=== PATIENT | male | born 1960 | race Caucasian/White ===

== ENCOUNTER → 2017-02-03 | Outpatient (CLI) | payer OTHER ==
[2017-02-03 12:09] LABS: ABSOLUTE EOSINOPHILS # (AUTO) 0.1 10^3/uL (0.0-0.6); ABSOLUTE LYMPHOCYTES (AUTO) 1.2 10^3/uL (0.5-4.7); ABSOLUTE MONOCYTES (AUTO) 0.6 10^3/uL (0.1-1.4); ABSOLUTE NEUT (AUTO) 5.7 10^3/uL (1.7-8.2); BASOPHILS % (AUTO) 0.6 % (0-2); EOSINOPHILS % (AUTO) 1.5 % (0-6); HEMATOCRIT 43.4 % (37.9-51.0); HEMOGLOBIN 14.1 g/dL (13.5-17.0); HGB HCT DIFFERENCE -1.1; LYMPHOCYTES % (AUTO) 16.1 % (13-45); MEAN CORPUSCULAR HEMOGLOBIN 28.5 pg (27.0-33.4); MEAN CORPUSCULAR HGB CONC 32.5 g/dL (32.0-36.0); MEAN CORPUSCULAR VOLUME 88 fl (80-97); MONOCYTES % (AUTO) 7.5 % (3-13); RED BLOOD COUNT 4.96 10^6/uL (4.35-5.55); RED CELL DISTRIBUTION WIDTH 14.3 % (11.5-14.0); SEGMENTED NEUTROPHILS % (AUTO) 74.3 % (42-78); WHITE BLOOD COUNT 7.7 10^3/uL (4.0-10.5)
[2017-02-03 12:30] LABS: ANION GAP 9 (5-19); BLOOD UREA NITROGEN 31 mg/dL (7-20); CALCIUM 10.1 mg/dL (8.4-10.2); CARBON DIOXIDE 28 mmol/L (22-30); CHLORIDE 101 mmol/L (98-107); CREATININE RESULT 1.13 mg/dL (0.52-1.25); GLUCOSE 114 mg/dL (75-110); POTASSIUM 3.8 mmol/L (3.6-5.0); SODIUM 138.3 mmol/L (137-145)
[2017-02-03 12:51] LABS: ERYTHROCYTE SEDIMENTATION RATE 48 mm/hr (0-20)
== END ==
LOC: OD 10:21
DX: I10 Essential (primary) hypertension (principal); K57.92 Diverticulitis of intestine, part unspecified, without perforation or abscess without bleeding
CPT/HCPCS: 36415; 80048; 85025; 85652

== ENCOUNTER → 2017-02-12 | Outpatient (CLI) | payer OTHER | LOC: RAD 09:54 | DX: K57.92 Diverticulitis of intestine, part unspecified, without perforation or abscess without bleeding (principal) | CPT/HCPCS: 72040; 74177 ==

== ENCOUNTER → 2017-10-12 | Outpatient (CLI) | payer OTHER ==
[2017-10-12 12:30] LABS: Direct HDL 71 mg/dL (>40); TRIGLYCERIDES 91 mg/dL (<150)
[2017-10-12 12:43] LABS: DIRECT LDL 54 mg/dL (<100)
[2017-10-13 07:42] LABS: HEPATITIS C VIRUS AB <0.1 s/co ratio (0.0-0.9)
== END ==
LOC: CCC 10:37
DX: I27.0 Primary pulmonary hypertension (principal)
CPT/HCPCS: 36415; 80061; 83036; 84153; 84443; 86803; 86804

== ENCOUNTER → 2017-11-06 | Outpatient (CLI) | payer OTHER ==
[2017-11-08 08:38] LABS: THYROXINE (T4) 6.2 ug/dL (4.5-12.0)
== END ==
LOC: CCC 10:21
DX: R94.6 Abnormal results of thyroid function studies (principal)
CPT/HCPCS: 36415; 84436; 84443; 84479

== ENCOUNTER → 2018-04-12 | Outpatient (CLI) | payer OTHER ==
[2018-04-12 12:31] LABS: ABSOLUTE EOSINOPHILS # (AUTO) 0.1 10^3/uL (0.0-0.6); ABSOLUTE LYMPHOCYTES (AUTO) 1.3 10^3/uL (0.5-4.7); ABSOLUTE MONOCYTES (AUTO) 0.6 10^3/uL (0.1-1.4); ABSOLUTE NEUT (AUTO) 4.8 10^3/uL (1.7-8.2); BASOPHILS % (AUTO) 0.3 % (0-2); HEMATOCRIT 45.5 % (37.9-51.0); HEMOGLOBIN 15.5 g/dL (13.5-17.0); LYMPHOCYTES % (AUTO) 18.6 % (13-45); MEAN CORPUSCULAR HEMOGLOBIN 32.2 pg (27.0-33.4); MEAN CORPUSCULAR HGB CONC 34.1 g/dL (32.0-36.0); MEAN CORPUSCULAR VOLUME 94 fl (80-97); MONOCYTES % (AUTO) 9.5 % (3-13); PLATELET COUNT 353 10^3/uL (150-450); RED BLOOD COUNT 4.82 10^6/uL (4.35-5.55); RED CELL DISTRIBUTION WIDTH 13.2 % (11.5-14.0); SEGMENTED NEUTROPHILS % (AUTO) 70.6 % (42-78); TOTAL CELLS COUNTED % (AUTO) 100 %; WHITE BLOOD COUNT 6.8 10^3/uL (4.0-10.5)
[2018-04-12 13:03] LABS: ALANINE AMINOTRANSFERASE 53 U/L (21-72); ALBUMIN 4.3 g/dL (3.5-5.0); ALKALINE PHOSPHATASE 63 U/L (38-126); ANION GAP 10 (5-19); ASPARTATE AMINO TRANSFERASE 47 U/L (17-59); BILIRUBIN,DIRECT 0.2 mg/dL (0.0-0.4); BILIRUBIN,TOTAL 0.3 mg/dL (0.2-1.3); BLOOD UREA NITROGEN 15 mg/dL (7-20); CALCIUM 9.8 mg/dL (8.4-10.2); CARBON DIOXIDE 30 mmol/L (22-30); CHLORIDE 99 mmol/L (98-107); CHOLESTEROL 152.13 mg/dL (0-200); GLUCOSE 102 mg/dL (75-110); NEONATAL BILIRUBIN RESULT 0.1 mg/dL (0.1-1.1); POTASSIUM 4.5 mmol/L (3.6-5.0); SODIUM 138.7 mmol/L (137-145); TOTAL PROTEIN 6.9 g/dL (6.3-8.2); TRIGLYCERIDES 146 mg/dL (<150)
[2018-04-12 13:14] LABS: DIRECT LDL 59 mg/dL (<100)
[2018-04-13 06:39] LABS: HEPATITIS C VIRUS AB <0.1 s/co ratio (0.0-0.9)
== END ==
LOC: CCC 11:20
DX: Z00.00 Encounter for general adult medical examination without abnormal findings (principal); I10 Essential (primary) hypertension; E78.5 Hyperlipidemia, unspecified
CPT/HCPCS: 36415; 80053; 80061; 83036; 84153; 84443; 85025; 86803; 86804

== ENCOUNTER 2018-06-10 08:58 | Inpatient (IN) | payer MEDICARE, OTHER ==
[2018-06-10] MEDS ORDERED: METOCLOPRAMIDE HCL INJ/PF 10 MG/2 ML SDV IV ONE (09:13)
[2018-06-10] MEDS ORDERED: NORMAL SALINE 1000 ML 1,000 ML IV ONE ×2 (09:13→12:23)
[2018-06-10] MEDS ORDERED: HYDROMORPHONE HCL INJ/PF 2 MG/ML AMPULE IV ONE (09:13)
[2018-06-10 09:26] LABS: HEMATOCRIT 44.8 % (37.9-51.0); MEAN CORPUSCULAR HEMOGLOBIN 32.1 pg (27.0-33.4); MEAN CORPUSCULAR HGB CONC 33.5 g/dL (32.0-36.0); MEAN CORPUSCULAR VOLUME 96 fl (80-97); PLATELET COUNT 313 10^3/uL (150-450); RED BLOOD COUNT 4.68 10^6/uL (4.35-5.55); RED CELL DISTRIBUTION WIDTH 13.9 % (11.5-14.0); WHITE BLOOD COUNT 12.8 10^3/uL (4.0-10.5)
[2018-06-10 09:38] LABS: ALANINE AMINOTRANSFERASE 63 U/L (21-72); ALBUMIN 4.3 g/dL (3.5-5.0); ALKALINE PHOSPHATASE 67 U/L (38-126); ANION GAP 14 (5-19); ASPARTATE AMINO TRANSFERASE 81 U/L (17-59); BILIRUBIN,DIRECT 0.3 mg/dL (0.0-0.4); BILIRUBIN,TOTAL 0.4 mg/dL (0.2-1.3); BLOOD UREA NITROGEN 17 mg/dL (7-20); CALCIUM 9.3 mg/dL (8.4-10.2); CARBON DIOXIDE 28 mmol/L (22-30); CHLORIDE 98 mmol/L (98-107); GLUCOSE 142 mg/dL (75-110); POTASSIUM 4.4 mmol/L (3.6-5.0); SODIUM 139.6 mmol/L (137-145)
[2018-06-10 09:49] LABS: LIPASE 3188.4 U/L (23-300)
[2018-06-10 09:51] LABS: ABSOLUTE LYMPHOCYTES# (MANUAL) 0.5 10^3/uL (0.5-4.7); ABSOLUTE MONOCYTES # (MANUAL) 0.5 10^3/uL (0.1-1.4); ABSOLUTE NEUTROPHILS# (MANUAL) 11.8 10^3/uL (1.7-8.2); BASOPHILS % (MANUAL) 0 % (0-2); EOSINOPHILS % (MANUAL) 0 % (0-6); LYMPHOCYTES % (MANUAL) 4 % (13-45); MONOCYTES % (MANUAL) 4 % (3-13); PLATELET COMMENT ADEQUATE; RBC MORPHOLOGY COMMENT NORMO-CYTIC/CHROMIC; SEGMENTED NEUTROPHILS % (MAN) 92 % (42-78); TOTAL CELLS COUNTED 100; TOXIC GRANULATION SLIGHT
--- NOTE | 2018-06-10 09:53 | ER Document Report ---
ED General - General Chief Complaint: Abdominal Pain Stated Complaint: ABDOMINAL PAIN Time Seen by Provider: 06/10/18 09:06 Mode of Arrival: Medic Information source: Patient Notes: Pt is a 57 year old male with a history of diverticulitis who presents to the ER today for abdominal pain to his upper abdomen, right upper quadrant that woke him up from sleep at 1:30am. He admits to nausea and vomiting. He denies fever or chills, diarrhea. He doesn't have any gallbladder issues that he knows of, last bm was yesterday, he has never had any abd surgeries, has all his organs. He had steak last night for dinner. TRAVEL OUTSIDE OF THE [place] IN LAST 30 DAYS: No - Related Data Allergies/Adverse Reactions: No Known Allergies Allergy (Verified 10/21/16 14:16) Past Medical History - General Information source: Patient - Social History Smoking Status: Unknown if Ever Smoked Family History: Arthritis, Malignancy - Father with brain cancer., Other - Mother with vascular disease and arthritis. - Past Medical History Cardiac Medical History: Reports: Hx Hypercholesterolemia, Hx Hypertension Musculoskeletal Medical History: Reports Hx Arthritis Past Surgical History: Reports: Hx Orthopedic Surgery - neck - Immunizations Hx Diphtheria, Pertussis, Tetanus Vaccination: Yes Review of Systems - Review of Systems Constitutional: No symptoms reported EENT: No symptoms reported Cardiovascular: No symptoms reported Respiratory: No symptoms reported Gastrointestinal: See HPI Genitourinary: No symptoms reported Male Genitourinary: No symptoms reported Musculoskeletal: No symptoms reported Skin: No symptoms reported Hematologic/Lymphatic: No symptoms reported Neurological/Psychological: No symptoms reported Physical Exam - Vital signs Vitals: Temp Pulse Resp BP Pulse Ox 97.7 F 88 20 136/89 H 94 06/10/18 09:10 06/10/18 09:10 06/10/18 09:10 06/10/18 09:10 06/10/18 09:10 - Notes Notes: PHYSICAL EXAMINATION: GENERAL: ill appearing, writhing in pain, and in mild acute distress. HEAD: Atraumatic, normocephalic. EYES: Pupils equal round and reactive to light, extraocular movements intact, sclera anicteric, conjunctiva are normal. ENT: airway patent NECK: Normal range of motion, supple without lymphadenopathy LUNGS: CTAB and equal. No wheezes rales or rhonchi. HEART: Regular rate and rhythm without murmurs ABDOMEN: distended, ruq and epigastric tenderness. No guarding, no rebound BACK: no vertebral tenderness, normal ROM GI/: no CVA tenderness EXTREMITIES: Normal range of motion, no pitting edema. No cyanosis. NEUROLOGICAL: Cranial nerves grossly intact. Normal sensory/motor exams. PSYCH: Normal mood, normal affect. SKIN: Warm, Dry, normal turgor, no rashes or lesions noted Course - Re-evaluation Re-evalutation: 06/10/18 12:08 WBC 12, CT abd pelvis shows fat stranding around pancreas, early pancreatitis, lipase 3188, normal liver enzymes and bilirubin, but gallbladder enlarged on US and CT today, no wall thickening or stones, no biliary duct dilation. Dr. Short, surgeon diamond driller helper evaluated pt and accepts for possible gallstone pancreatitis with stone unseen on radiology today vs cholecystitis. pt really only has RUQ pain on exam but is distended. pt doing better with some dilaudid. - Vital Signs Vital signs: Temp Pulse Resp BP Pulse Ox 98.1 F 89 17 155/85 H 95 06/10/18 19:35 06/10/18 19:35 06/10/18 19:35 06/10/18 19:35 06/10/18 19:35 - Laboratory Result Diagrams: 06/10/18 08:40 06/10/18 08:40 Laboratory results interpreted by me: 06/10/18 06/10/18 08:40 08:40 WBC 12.8 H Seg Neuts % (Manual) 92 H Lymphocytes % (Manual) 4 L Abs Neuts (Manual) 11.8 H Glucose 142 H AST 81 H Lipase 3188.4 H Discharge - Discharge Clinical Impression: Gallstone pancreatitis Condition: Stable Disposition: ADMITTED INPATIENT Admitting Provider: Surgicalist Milo short Unit Admitted: Surgical Floor
--- NOTE | 2018-06-10 10:07 | RADIOLOGY REPORT (SQ) ---
EXAM DESCRIPTION: CT ABD/PELVIS WITH IV ONLY COMPLETED DATE/TIME: 06/10/2018 9:30 am REASON FOR STUDY: abd pain distention, woke him up from sleep, n/v COMPARISON: CT abdomen pelvis 07/15/2016, 10/11/2016, 10/15/2016, 10/04/2016, 02/12/2017 Abdominal ultrasound 06/29/2016 TECHNIQUE: CT scan of the abdomen and pelvis performed using helical scanning technique with dynamic intravenous contrast injection. No oral contrast. Images reviewed with lung, soft tissue, and bone windows. Reconstructed coronal and sagittal MPR images reviewed. Delayed images for evaluation of the urinary system also acquired. All images stored on PACS. All CT scanners at this facility use dose modulation, iterative reconstruction, and/or weight based d osing when appropriate to reduce radiation dose to as low as reasonably achievable (ALARA). [facility]: Dose Right [facility]: CareDose [facility]: Dose Right [facility]: Teradose 4D [facility]: Advanced Magnet Lab CONTRAST TYPE AND DOSE: contrast/concentration: Isovue 370.00 mg/ml; Total Contrast Delivered: 89.0 ml; Total Saline Delivered: 70.0 ml RENAL FUNCTION: Deferred by the emergency room physician RADIATION DOSE: CT Rad equipment meets quality standard of care and radiation dose reduction techniq ues were employed. CTDIvol: 10.0 - 14.4 mGy. DLP: 1327 mGy-cm.. LIMITATIONS: None. FINDINGS: LOWER CHEST: No significant findings. No nodules or infiltrates. LIVER: Normal size, diffuse low attenuation from fatty infiltration. No masses. No biliary ductal d ilatation SPLEEN: Normal size. No focal lesions. PANCREAS: Minimal inflammatory stranding in the peripancreatic fat along the pancreatic head, worriso me for early pancreatitis. Remainder the pancreas is otherwise unremarkable. No pancreatic ductal d ilatation GALLBLADDER: Distended, without radiopaque stones or pericholecystic fluid. ADRENAL GLANDS: No significant masses or asymmetry. RIGHT KIDNEY AND URETER: No solid masses. No significant calcifications. No hydronephrosis or hyd roureter. LEFT KIDNEY AND URETER: No solid masses. No significant calcifications. No hydronephrosis or hydr oureter. AORTA AND VESSELS: No aneurysm. No dissection. Renal arteries, SMA, celiac without stenosis. RETROPERITONEUM: No retroperitoneal adenopathy, hemorrhage or masses. BOWEL AND PERITONEAL CAVITY: Large amount of stool throughout the colon. No CT evidence of bowel obs truction. No free intraperitoneal air or fluid. Colonic diverticuli without CT signs of acute diver ticulitis. APPENDIX: Not identified PELVIS: No mass. No free fluid. Normal bladder. ABDOMINAL WALL: No masses. No hernias. BONES: No significant or acute findings. OTHER: No other significant finding. IMPRESSION: Fatty liver Minimal retroperitoneal inflammation around the pancreatic head, worrisome for pancreatitis TECHNICAL DOCUMENTATION: JOB ID: [id number] Quality ID # [id number]: Final reports with documentation of one or more dose reduction techniques (e.g., Au tomated exposure control, adjustment of the mA and/or kV according to patient size, use of iterative reconstruction technique) 2010 [employer]- All Rights Reserved Reading location - IP/workstation name: [email or web address]
--- NOTE | 2018-06-10 11:27 | RADIOLOGY REPORT (SQ) ---
EXAM DESCRIPTION: U/S ABDOMEN LIMITED W/O DOP COMPLETED DATE/TIME: 06/10/2018 11:10 am REASON FOR STUDY: lipase 3,000, enlarged gallbladder on CT COMPARISON: CT abdomen and pelvis 06/10/2018. Abdominal ultrasound 06/29/2016. TECHNIQUE: Grayscale images acquired of the abdomen and recorded on PACS. Additional selected color Doppler and spectral images recorded. LIMITATIONS: Overlying bowel gas. FINDINGS: PANCREAS: The pancreas is obscured by overlying bowel gas. LIVER: Measures 16.6 cm. There is coarsened echotexture suggestive of fatty infiltration. LIVER VASCULATURE: Normal directional flow of the main portal vein. GALLBLADDER: The gallbladder is distended measuring 10.5 x 4.6 x 4.2 cm. No stones. Normal wall thic kness. No pericholecystic fluid. ULTRASOUND-DETECTED KELLEY'S SIGN: Positive. INTRAHEPATIC DUCTS AND COMMON DUCT: CBD and intrahepatic ducts normal caliber. INFERIOR VENA CAVA: Patent. AORTA: No aneurysm at the visualized segments. RIGHT KIDNEY: Measures 13.1 cm. Normal echogenicity. No hydronephrosis. No calcifications. PERITONEAL AND RIGHT PLEURAL SPACE: No ascites or effusions. IMPRESSION: 1. Distended gallbladder with no cholelithiasis or gallbladder wall thickening. Tender ness over the gallbladder during ultrasound scanning. If there is clinical concern for acalculous ch olecystitis, hepatobiliary scan can be obtained for further evaluation. 2. Fatty infiltration of the liver. 3. Obscured pancreas. TECHNICAL DOCUMENTATION: JOB ID: [id number] [place]-64 2010 [employer]- All Rights Reserved Reading location - IP/workstation name: [email or web address]
[2018-06-10] MEDS ORDERED: HYDROMORPHONE HCL INJ/PF 2 MG/ML AMPULE IV PRN ×2 (12:22→13:13)
[2018-06-10] MEDS: NORMAL SALINE 1000 ML 1,000 ML IV PRN ×2 (13:30→22:32)
[2018-06-10 16:15] LABS: APPEARANCE,URINE CLEAR; BILIRUBIN,URINE NEGATIVE (NEGATIVE); COLOR,URINE YELLOW; GLUCOSE, URINE NEGATIVE (NEGATIVE); KETONES,URINE 20 mg/dL (NEGATIVE); LEUKOCYTE ESTERASE,URINE NEGATIVE (NEGATIVE); NITRITE,URINE NEGATIVE (NEGATIVE); PROTEIN,URINE NEGATIVE (NEGATIVE); URINE SPECIFIC GRAVITY 1.032; UROBILINOGEN,URINE NEGATIVE mg/dL (<2.0)
[2018-06-10] MEDS: MORPHINE SULFATE 10 MG/ML INJ IV PRN ×2 (16:51→21:28)
[2018-06-10] MEDS: ERTAPENEM SODIUM 1 GM in NORMAL SALINE 50 ML IV SCH (17:17)
[2018-06-10] MEDS: ONDANSETRON 4 MG TAB.RAPDIS PO PRN ×2 (18:09→23:52)
[2018-06-10] MEDS ORDERED: LISINOPRIL 10 MG TABLET PO ONE (20:45)
[2018-06-10] MEDS ORDERED: HYDROCHLOROTHIAZIDE 12.5 MG TABLET PO ONE (21:00)
[2018-06-10] MEDS: NICOTINE 21 MG/24 HR PATCH.TD24 TD SCH (21:28)
[2018-06-10] MEDS: KETOROLAC TROMETHAMINE INJ/PF 30 MG/1 ML SDV IV PRN (23:51)
[2018-06-11] MEDS ORDERED: LABETALOL HCL INJ 20 MG/4 ML DISP.SYRIN IV PRN ×2 (00:01→00:30)
--- NOTE | 2018-06-11 00:26 | PDOC CONSULTATION ---
Consultation Consult Date: 06/10/18 Attending physician:: JUNIOR SHORT Consult reason:: Elevated blood pressure History of Present Illness Admission Date/PCP: 09/09/2018 23:15 Patient complains of: Abdominal pain History of Present Illness: RAUL CLAIRE is a 57 year old male with history of multiple medical problems that will be mentioned below presented with acute onset of upper abdominal pain , mainly in the right upper quadrant with associated nausea and vomiting. Denies any fever or chills. She has been having constipation since yesterday. He was admitted for acute pancreatitis and is suspected to be gallstone pancreatitis. He is expected to have cholecystectomy no dysuria, oliguria, hematuria or flank pain. He has been noticed to have elevated blood pressure this evening. He denies any headache or dizziness or blurred vision. No paresthesias or focal muscle weakness. No chest pain or dyspnea or palpitations. I was consulted for medical evaluation and management of his hypertension. Past Medical History Cardiac Medical History: Reports: Hyperlipidema, Hypertension GI History Note: Gallstone pancreatitis Musculoskeltal Medical History: Reports: Arthritis Psychiatric Medical History: Reports: Depression Past Surgical History Past Surgical History: Reports: Orthopedic Surgery - neck Social History Smoking Status: Current Every Day Smoker Cigarettes Packs Per Day: 1 Number of Years Smokin Last Time Smoked: 06/10/18 0700 Frequency of Alcohol Use: Occasional Hx Recreational Drug Use: No Drugs: None Hx Prescription Drug Abuse: No - Advance Directive Resuscitation Status: Full Code Family History Family History: Arthritis, Hypertension, Malignancy - Father with brain cancer. , Other - Mother with vascular disease and arthritis. Parental Family History Reviewed: Yes Children Family History Reviewed: Yes Sibling(s) Family History Reviewed.: Yes Medication/Allergy Home Medications: Atorvastatin Calcium [Lipitor 40 mg Tablet] 40 mg PO QHS 06/10/18 Celecoxib [Celebrex 200 mg Capsule] 200 mg PO DAILY 06/10/18 Duloxetine HCl [Cymbalta] 60 mg PO DAILY 06/10/18 Lisinopril/Hydrochlorothiazide [Lisinopril-Hctz 10-12.5 mg Tab] 1 each PO QPM Lisinopril/Hydrochlorothiazide [Lisinopril-Hctz 10-12.5 mg Tab] 2 each PO QAM Metaxalone [Skelaxin 800 mg Tablet] 800 mg PO TID 06/10/18 Tramadol HCl [Ultram 50 mg Tablet] 50 mg PO QIDP PRN 06/10/18 Zinc [Zinc Chelated] 50 mg PO DAILY 06/10/18 Allergies/Adverse Reactions: No Known Allergies Allergy (Verified 10/21/16 14:16) Review of Systems Review of Systems: As per history of present illness. All pertinent systems were reviewed above. Constitutional, HEENT, cardiovascular, respiratory, GI, , musculoskeletal, neuro, psychiatric, endocrine, integumentary and hematologic systems were reviewed and are otherwise negative/unremarkable except for positive findings mentioned above in the HPI. Physical Exam Vital Signs: Temp Pulse Resp BP Pulse Ox 98.1 F 89 17 155/85 H 95 06/10/18 19:35 06/10/18 19:35 06/10/18 19:35 06/10/18 19:35 06/10/18 19:35 Intake & Output 06/09/18 06/10/18 06/11/18 06:59 06:59 06:59 Weight 82.4 kg Exam: Generally: Very pleasant middle-aged male in mild distress from abdominal pain Vital signs-as listed Head - atraumatic, normocephalic. Pupils - equal, round and reactive to light and accommodation. Extraocular movements are intact. No scleral icterus. Oropharynx - moist mucous membranes and tongue. No pharyngeal erythema or exudate. Neck - supple. No JVD. Carotid pulses 2+ bilaterally. No carotid bruits. No palpable thyromegaly or lymphadenopathy. Cardiovascular - regular rate and rhythm. Normal S1 and S2. No murmurs, gallops or rubs. Lungs - clear to auscultation bilaterally. Abdomen - soft and diffusely tender mainly in the right upper quadrant, epigastric area as well as the left upper quadrant. Positive bowel sounds. No palpable organomegaly or masses. Extremities - no pitting edema, clubbing or cyanosis. Neuro - grossly non-focal. Skin - no rashes. and rectal exam - deferred. Results Laboratory Results: 06/10/18 15:45 Urine Color YELLOW Urine Appearance CLEAR Urine pH 5.0 Ur Specific Green 1.032 Urine Protein NEGATIVE Urine Glucose (UA) NEGATIVE Urine Ketones 20 H Urine Blood NEGATIVE Urine Nitrite NEGATIVE Ur Leukocyte Esterase NEGATIVE Urine WBC (Auto) 0 Urine RBC (Auto) 1 Impressions: Abdomen/Pelvis CT 06/10/18 09:14 IMPRESSION: Fatty liver Minimal retroperitoneal inflammation around the pancreatic head, worrisome for pancreatitis Abdomen Ultrasound 06/10/18 09:52 IMPRESSION: 1. Distended gallbladder with no cholelithiasis or gallbladder wall thickening. Tenderness over the gallbladder during ultrasound scanning. If there is clinical concern for acalculous cholecystitis, hepatobiliary scan can be obtained for further evaluation. 2. Fatty infiltration of the liver. 3. Obscured pancreas. Assessment & Plan - Diagnosis (1) Gallstone pancreatitis Is this a current diagnosis for this admission?: Yes Plan: The patient will have serial lipase levels. Pain management will be provided. Is being kept n.p.o. Is being prepared for cholecystectomy. He has no history of CVA, CHF, coronary artery disease, diabetes on insulin renal failure. He is considered at average risk for his age for perioperative cardiovascular events. The revised cardiac risk index. He has no current pulmonary issues. (2) Hypertension Qualifiers: Hypertension type: essential hypertension Qualified Code(s): I10 - Essential (primary) hypertension Is this a current diagnosis for this admission?: Yes Plan: The patient can be continued on his p.o. lisinopril HCT and we will add as needed IV labetalol for optimal BP control. His elevated blood pressures partly related to his pain. He was ordered IV Toradol in addition to IV morphine on a as needed basis for pain (3) Tobacco abuse Is this a current diagnosis for this admission?: Yes Plan: I counseled the patient for smoking cessation and the patient will receive further counseling here. (4) Dyslipidemia Is this a current diagnosis for this admission?: Yes Plan: We will hold statin therapy given elevated AST (5) DVT prophylaxis Is this a current diagnosis for this admission?: Yes Plan: This is deferred to Dr. Short. - Plan Summary Plan Summary: The plan of care was discussed in details with the patient. I answered all questions. The patient agreed to proceed with the above-mentioned plan. The patient is presumably full code. This note was created by [employer] software and may contain typo errors that may have not been proofread. Thank you Dr. Short for allowing me to participate in the care of this very pleasant gentleman. We will follow the patient along with you.
[2018-06-11] MEDS: MORPHINE SULFATE 10 MG/ML INJ IV PRN ×2 (01:30→11:38)
[2018-06-11] MEDS: KETOROLAC TROMETHAMINE INJ/PF 30 MG/1 ML SDV IV PRN (05:40)
[2018-06-11 06:59] LABS: ABSOLUTE LYMPHOCYTES (AUTO) 0.7 10^3/uL (0.5-4.7); ABSOLUTE MONOCYTES (AUTO) 0.8 10^3/uL (0.1-1.4); ABSOLUTE NEUT (AUTO) 7.8 10^3/uL (1.7-8.2); BASOPHILS % (AUTO) 0.2 % (0-2); EOSINOPHILS % (AUTO) 0.3 % (0-6); HEMOGLOBIN 13.3 g/dL (13.5-17.0); LYMPHOCYTES % (AUTO) 7.5 % (13-45); MEAN CORPUSCULAR HEMOGLOBIN 32.4 pg (27.0-33.4); MEAN CORPUSCULAR VOLUME 95 fl (80-97); MONOCYTES % (AUTO) 8.9 % (3-13); PLATELET COUNT 231 10^3/uL (150-450); RED BLOOD COUNT 4.09 10^6/uL (4.35-5.55); RED CELL DISTRIBUTION WIDTH 13.9 % (11.5-14.0); SEGMENTED NEUTROPHILS % (AUTO) 83.1 % (42-78); TOTAL CELLS COUNTED % (AUTO) 100 %; WHITE BLOOD COUNT 9.4 10^3/uL (4.0-10.5)
[2018-06-11 07:18] LABS: ALANINE AMINOTRANSFERASE 45 U/L (21-72); ALBUMIN 3.3 g/dL (3.5-5.0); ALKALINE PHOSPHATASE 44 U/L (38-126); ANION GAP 10 (5-19); ASPARTATE AMINO TRANSFERASE 41 U/L (17-59); BILIRUBIN,DIRECT 0.3 mg/dL (0.0-0.4); BILIRUBIN,TOTAL 0.5 mg/dL (0.2-1.3); BLOOD UREA NITROGEN 14 mg/dL (7-20); CALCIUM 8.4 mg/dL (8.4-10.2); CARBON DIOXIDE 27 mmol/L (22-30); CHLORIDE 102 mmol/L (98-107); GLUCOSE 94 mg/dL (75-110); LIPASE 878.1 U/L (23-300); POTASSIUM 3.8 mmol/L (3.6-5.0); SODIUM 138.7 mmol/L (137-145); TOTAL PROTEIN 5.7 g/dL (6.3-8.2)
[2018-06-11] MEDS ORDERED: FENTANYL CITRATE INJ/PF 100 MCG/2 ML AMPUL ONE ×3 (07:51→10:16)
[2018-06-11] MEDS ORDERED: MIDAZOLAM 2 MG/2 ML INJ ONE (07:52)
[2018-06-11] MEDS ORDERED: PROPOFOL INJ 200 MG/20 ML VIAL IV ONE (07:52)
[2018-06-11] MEDS ORDERED: HYDROMORPHONE HCL INJ/PF 2 MG/ML AMPULE ONE (07:53)
[2018-06-11] MEDS ORDERED: ACETAMINOPHEN 1,000 MG/100 ML RTUPB IV ONE (07:53)
[2018-06-11] MEDS: BUPIVACAINE HCL 0.25 % INJ/PF (2.5 MG/1 ML) 30 ML VIAL ONE ×2 (08:39→09:30)
[2018-06-11] MEDS ORDERED: FENTANYL CITRATE INJ/PF 100 MCG/2 ML AMPUL IV PRN ×3 (09:06)
[2018-06-11] MEDS ORDERED: DIPHENHYDRAMINE HCL 50 MG/ML VIAL IV PRN (09:06)
[2018-06-11] MEDS ORDERED: PROMETHAZINE HCL INJ 25 MG/1 ML VIAL IV PRN (09:06)
--- NOTE | 2018-06-11 09:45 | EKG REPORT ---
SEVERITY:- BORDERLINE ECG - SINUS TACHYCARDIA PROBABLE LEFT ATRIAL ABNORMALITY : Confirmed by: Efren Beltrán 11-Jun-2018 09:44:30
[2018-06-11] MEDS ORDERED: PROMETHAZINE HCL INJ 25 MG/1 ML VIAL ONE (10:16)
--- NOTE | 2018-06-11 10:25 | OPERATIVE REPORT E ---
Operative Report NAME: RAUL CLAIRE : 1960 AGE: 57Y DATE OF SURGERY: 06/11/2018 ROOM: 527 PREOPERATIVE DIAGNOSIS: Gallstone pancreatitis. POSTOPERATIVE DIAGNOSIS: Gallstone pancreatitis with chronic cholecystitis. OPERATION: Laparoscopic cholecystectomy. SURGEON: JUNIOR DUFFY M.D. ANESTHESIA: General. INDICATIONS: This is a 57-year-old male complaining of pains in the right upper quadrant all of the sudden 2 nights ago. He came to the Emergency Room yesterday where an ultrasound, however, showed no gallstones. However, he was tender in the right upper quadrant and his lipase elevated to over 2000. He was admitted and placed on IV antibiotics, and this morning his lipase is less than 1000 and all his liver functions were normal with a white count also coming down to normal. He is still quite tender in the right upper quadrant. DESCRIPTION OF PROCEDURE: After adequate general anesthesia, the abdomen was then prepped and draped in the usual sterile fashion. Appropriate time out was then called. Next, an infraumbilical incision was made and a Simona trocar inserted through the fascia into the abdominal cavity, and CO2 insufflated to a pressure of 15 mmHg. Three other trocars were placed under direct vision, a 12 mm in the subxiphoid and two 5 mm in the right upper quadrant. The gallbladder was then identified and there were a lot of adhesions around it. The gallbladder also was quite tense and unable to grasp with a grasper. Because of this the gallbladder was then emptied using a long needle and aspirated at least 60 mL of bile. Next the tip of the gallbladder was subsequently grasped and pulled over the liver, and the adhesions around the gallbladder were bluntly lysed and also together with the Harmonic wli. The wall was somewhat thickened. The infundibulum was then lifted up and the cystic duct dissected. The cystic artery was also identified. After visualization of the critical angle the cystic duct was then clipped proximally x2 and another clip towards the gallbladder. The cystic duct was then divided between the distal clips. The cystic artery was then clipped and divided with the use of Harmonic wil. The gallbladder was then taken off the liver bed with use of the Harmonic wil. There was some oozing around the liver bed prior to removal of the gallbladder. This was then controlled with the use of spatula cautery. The gallbladder was then removed from the liver bed completely and placed in an Endobag and pulled out through the umbilical port. Trocars were put back in the umbilicus and the liver bed inspected and irrigated. There was still a couple areas of oozing which were again further controlled with use of spatula cautery. Adequate hemostasis was noted. There was no stone palpated in the gallbladder through the bag. All the trocars were then removed and CO2 allowed to come out the trocar sites. A kemptf-qy-pabuk suture using 0 Vicryl was then placed at the umbilicus, a [id number] suture on the posterior fascia, and another one on the anterior fascia. All the skin incisions were then closed with running subcuticular closure using 4-0 Vicryl. Sterile Dermabond glue was used as a dressing. The patient tolerated the procedure well. The needle, instrument, and sponge counts were all correct. Estimated blood loss was about 10 mL. The patient tolerated the procedure and was brought to the recovery room in satisfactory condition. DICTATING PHYSICIAN: JUNIOR DUFFY M.D. [id number] PHY#: [id number] ID: [id number] JOB#: [id number] ACCT: [id number] cc:JUNIOR DUFFY M.D. >
[2018-06-11] MEDS ORDERED: GLYCOPYRROLATE 1 MG/5 ML SYRINGE ONE (14:31)
[2018-06-11] MEDS ORDERED: ROCURONIUM BROMIDE INJ 50 MG/5 ML VIAL IV ONE (14:31)
[2018-06-11] MEDS ORDERED: NEOSTIGMINE METHYLSULFATE 10 MG/10 ML VIAL ONE (14:31)
[2018-06-11] MEDS ORDERED: SUCCINYLCHOLINE CHLORIDE INJ 200 MG/10 ML VIAL ONE (14:31)
[2018-06-11] MEDS ORDERED: PHENYLEPHRINE HCL INJ/PF 10 MG/1 ML SDV ONE (14:31)
[2018-06-11] MEDS: ERTAPENEM SODIUM 1 GM in NORMAL SALINE 50 ML IV SCH (15:08)
[2018-06-11] MEDS: OXYCODONE-ACETAMINOPHEN 5-325 MG TABLET PO PRN ×2 (15:10→20:07)
--- NOTE | 2018-06-11 17:28 | PDOC PROGRESS REPORT ---
Subjective Progress Note for:: 06/11/18 Subjective:: The patient is a 57-year-old male with past medical history significant for hypertension, hyperlipidemia, and tobacco abuse with continuous use who was admitted 06/10/18 by the surgical team for acute cholecystitis. The patient is seen on afternoon rounds after returning to his room status post cholecystectomy by Dr. Short. He is found sitting upright in bed, comfortably , on room air. He reports that he is feeling much better and was able to tolerate a clear liquid diet at lunch. He denies headaches, dizziness, blurred vision, chest pain, palpitations, dyspnea, orthopnea, nausea and vomiting. He does endorse mild right upper quadrant abdominal pain, although states that this is much improved. He has no questions or concerns at this time. Reason For Visit: GALLSTONE PANCREATITIS Physical Exam Vital Signs: Temp Pulse Resp BP Pulse Ox 97.9 F 97 16 125/87 H 98 06/11/18 14:50 06/11/18 14:50 06/11/18 14:50 06/11/18 14:50 06/11/18 14:50 Intake & Output 06/10/18 06/11/18 06/12/18 06:59 06:59 06:59 Intake Total 1300 1325 Output Total 500 240 Balance 800 1085 Weight 82.4 kg General appearance: PRESENT: no acute distress, cooperative - Very pleasant, well-developed, well-nourished, other - Overweight Head exam: PRESENT: atraumatic, normocephalic Eye exam: PRESENT: conjunctiva pink, EOMI, PERRLA. ABSENT: scleral icterus Ear exam: PRESENT: normal external ear exam Mouth exam: PRESENT: moist, tongue midline Neck exam: ABSENT: carotid bruit, JVD, lymphadenopathy, thyromegaly Respiratory exam: PRESENT: clear to auscultation janel, symmetrical, unlabored. ABSENT: rales, rhonchi, wheezes Cardiovascular exam: PRESENT: RRR, +S1, +S2. ABSENT: diastolic murmur, rubs, systolic murmur Pulses: PRESENT: normal dorsalis pedis pul Vascular exam: PRESENT: normal capillary refill GI/Abdominal exam: PRESENT: normal bowel sounds, soft, tenderness. ABSENT: distended, guarding, mass, organolmegaly, rebound Rectal exam: PRESENT: deferred Extremities exam: PRESENT: full ROM. ABSENT: calf tenderness, clubbing, pedal edema Neurological exam: PRESENT: alert, awake, oriented to person, oriented to place , oriented to time, oriented to situation, CN II-XII grossly intact. ABSENT: motor sensory deficit Psychiatric exam: PRESENT: appropriate affect, normal mood. ABSENT: homicidal ideation, suicidal ideation Skin exam: PRESENT: dry, warm. ABSENT: cyanosis, rash Results Laboratory Results: 06/11/18 06:27 06/11/18 06:27 06/11/18 06/11/18 06:27 06:27 WBC 9.4 RBC 4.09 L Hgb 13.3 L Hct 39.0 MCV 95 MCH 32.4 MCHC 34.0 RDW 13.9 Plt Count 231 Seg Neutrophils % 83.1 H Lymphocytes % 7.5 L Monocytes % 8.9 Eosinophils % 0.3 Basophils % 0.2 Absolute Neutrophils 7.8 Absolute Lymphocytes 0.7 Absolute Monocytes 0.8 Absolute Eosinophils 0.0 Absolute Basophils 0.0 Sodium 138.7 Potassium 3.8 Chloride 102 Carbon Dioxide 27 Anion Gap 10 BUN 14 Creatinine 0.72 Est GFR ( Amer) > 60 Est GFR (Non-Af Amer) > 60 Glucose 94 Calcium 8.4 Total Bilirubin 0.5 AST 41 ALT 45 Alkaline Phosphatase 44 Total Protein 5.7 L Albumin 3.3 L Lipase 878.1 H Impressions: Abdomen/Pelvis CT 06/10/18 09:14 IMPRESSION: Fatty liver Minimal retroperitoneal inflammation around the pancreatic head, worrisome for pancreatitis Abdomen Ultrasound 06/10/18 09:52 IMPRESSION: 1. Distended gallbladder with no cholelithiasis or gallbladder wall thickening. Tenderness over the gallbladder during ultrasound scanning. If there is clinical concern for acalculous cholecystitis, hepatobiliary scan can be obtained for further evaluation. 2. Fatty infiltration of the liver. 3. Obscured pancreas. Assessment & Plan - Diagnosis (1) Gallstone pancreatitis Is this a current diagnosis for this admission?: Yes Plan: Lipase is trended down following cholecystectomy; 3188 --> 878. The patient is now tolerating a clear liquid diet. He continues to receive maintenance IV fluids. He is provided antiemetics and analgesics as needed. Antibiotics per surgical team. Primary plan per surgery. (2) Hypertension Qualifiers: Hypertension type: essential hypertension Qualified Code(s): I10 - Essential (primary) hypertension Is this a current diagnosis for this admission?: Yes Plan: Normotensive at present. Continue his home maintenance medications; lisinopril/HCTZ. Optimize pain management. IV labetalol as needed for blood pressure control. (3) Tobacco abuse Is this a current diagnosis for this admission?: Yes Plan: Smoking cessation is encouraged; nicotine with placement therapies are provided. (4) Dyslipidemia Is this a current diagnosis for this admission?: Yes Plan: We will continue to hold statin related to recently elevated LFTs. Patient may resume following discharge. - Time Time Spent with patient: 15-24 minutes Medications reviewed and adjusted accordingly: Yes Anticipated discharge: Home Within: Other - Per surgical team.
[2018-06-11] MEDS: NICOTINE 21 MG/24 HR PATCH.TD24 TD SCH (20:35)
[2018-06-11] MEDS: CALCIUM CARBONATE 500 MG TAB.CHEW PO PRN (23:32)
[2018-06-12] MEDS: OXYCODONE-ACETAMINOPHEN 5-325 MG TABLET PO PRN ×3 (01:03→11:18)
[2018-06-12] MEDS: CALCIUM CARBONATE 500 MG TAB.CHEW PO PRN ×3 (04:35→23:20)
[2018-06-12] MEDS ORDERED: DOCUSATE SODIUM 100 MG CAPSULE PO PRN (13:35)
[2018-06-12] MEDS: NORMAL SALINE 1000 ML 1,000 ML IV PRN (14:29)
[2018-06-12] MEDS: KETOROLAC TROMETHAMINE INJ/PF 30 MG/1 ML SDV IV PRN ×2 (14:30→22:30)
[2018-06-12] MEDS: ERTAPENEM SODIUM 1 GM in NORMAL SALINE 50 ML IV SCH (14:33)
[2018-06-12] MEDS ORDERED: HYDROCHLOROTHIAZIDE 12.5 MG TABLET PO ONE (15:30)
[2018-06-12] MEDS ORDERED: LISINOPRIL 10 MG TABLET PO ONE (15:30)
--- NOTE | 2018-06-12 16:39 | PDOC PROGRESS REPORT ---
Subjective Progress Note for:: 06/12/18 Subjective:: mild RUQ pains Reason For Visit: GALLSTONE PANCREATITIS Physical Exam Vital Signs: Temp Pulse Resp BP Pulse Ox 97.8 F 90 16 151/93 H 96 06/12/18 12:00 06/12/18 12:00 06/12/18 12:00 06/12/18 12:00 06/12/18 12:00 Intake & Output 06/11/18 06/12/18 06/13/18 06:59 06:59 06:59 Intake Total 1300 5275 Output Total 500 690 Balance 800 4585 Weight 82.4 kg 86.2 kg Exam: abd is soft with mild distention Results Laboratory Results: 06/11/18 06:27 06/11/18 06:27 Impressions: Abdomen/Pelvis CT 06/10/18 09:14 IMPRESSION: Fatty liver Minimal retroperitoneal inflammation around the pancreatic head, worrisome for pancreatitis Abdomen Ultrasound 06/10/18 09:52 IMPRESSION: 1. Distended gallbladder with no cholelithiasis or gallbladder wall thickening. Tenderness over the gallbladder during ultrasound scanning. If there is clinical concern for acalculous cholecystitis, hepatobiliary scan can be obtained for further evaluation. 2. Fatty infiltration of the liver. 3. Obscured pancreas. Assessment & Plan - Time Time Spent with patient: 15-24 minutes - Plan Summary Plan Summary: POD 1 post lap tresa for gallstone pancreatitis Repeat labs in am Increase po diet and activity Possible discharge tomorrow
--- NOTE | 2018-06-12 17:12 | PDOC PROGRESS REPORT ---
Subjective Progress Note for:: 06/12/18 Subjective:: The patient is a 57-year-old male with past medical history significant for hypertension, hyperlipidemia, and tobacco abuse with continuous use who was admitted 06/10/18 by the surgical team for acute cholecystitis. The patient is seen on rounds POD#[address] Short. He is found sitting up to the edge of the bed, comfortably, on room air. He reports that he is feeling well today and is hopeful for d/c to home tomorrow. He denies headaches, dizziness, blurred vision, chest pain, palpitations, dyspnea, orthopnea, nausea and vomiting. He does endorse continued mild right upper quadrant abdominal pain. He has no questions or concerns at this time. Reason For Visit: GALLSTONE PANCREATITIS Physical Exam Vital Signs: Temp Pulse Resp BP Pulse Ox 98.0 F 84 16 142/90 H 97 06/12/18 16:00 06/12/18 16:00 06/12/18 16:00 06/12/18 16:00 06/12/18 16:00 Intake & Output 06/11/18 06/12/18 06/13/18 06:59 06:59 06:59 Intake Total 1300 5275 Output Total 500 690 Balance 800 4585 Weight 82.4 kg 86.2 kg General appearance: PRESENT: no acute distress, cooperative, well-developed, well-nourished Head exam: PRESENT: atraumatic, normocephalic Eye exam: PRESENT: conjunctiva pink, EOMI, PERRLA. ABSENT: scleral icterus Mouth exam: PRESENT: moist, tongue midline Neck exam: ABSENT: carotid bruit, JVD, lymphadenopathy, thyromegaly Respiratory exam: PRESENT: clear to auscultation janel, symmetrical, unlabored. ABSENT: rales, rhonchi, wheezes Cardiovascular exam: PRESENT: RRR. ABSENT: diastolic murmur, rubs, systolic murmur Vascular exam: PRESENT: normal capillary refill GI/Abdominal exam: PRESENT: normal bowel sounds, soft, tenderness. ABSENT: distended, guarding, mass, organolmegaly, rebound Rectal exam: PRESENT: deferred Extremities exam: PRESENT: full ROM. ABSENT: calf tenderness, clubbing, pedal edema Neurological exam: PRESENT: alert, awake, oriented to person, oriented to place , oriented to time, oriented to situation, CN II-XII grossly intact. ABSENT: motor sensory deficit Psychiatric exam: PRESENT: appropriate affect, normal mood. ABSENT: homicidal ideation, suicidal ideation Skin exam: PRESENT: dry, warm. ABSENT: cyanosis, rash Results Laboratory Results: 06/11/18 06:27 06/11/18 06:27 Impressions: Abdomen/Pelvis CT 06/10/18 09:14 IMPRESSION: Fatty liver Minimal retroperitoneal inflammation around the pancreatic head, worrisome for pancreatitis Abdomen Ultrasound 06/10/18 09:52 IMPRESSION: 1. Distended gallbladder with no cholelithiasis or gallbladder wall thickening. Tenderness over the gallbladder during ultrasound scanning. If there is clinical concern for acalculous cholecystitis, hepatobiliary scan can be obtained for further evaluation. 2. Fatty infiltration of the liver. 3. Obscured pancreas. Assessment & Plan - Diagnosis (1) Gallstone pancreatitis Is this a current diagnosis for this admission?: Yes Plan: Lipase is trended down following cholecystectomy; 3188 --> 878. The patient is now tolerating a regular diet. He continues to receive maintenance IV fluids. He is provided antiemetics and analgesics as needed. Antibiotics per surgical team. Primary plan per surgery. (2) Hypertension Qualifiers: Hypertension type: essential hypertension Qualified Code(s): I10 - Essential (primary) hypertension Is this a current diagnosis for this admission?: Yes Plan: Mildly elevated today at present; will continue to monitor. May need to consider increasing lisinopril dose. Continue his home maintenance medications; lisinopril/HCTZ. Optimize pain management. IV labetalol as needed for blood pressure control. (3) Tobacco abuse Is this a current diagnosis for this admission?: Yes Plan: Smoking cessation is encouraged; nicotine with placement therapies are provided. (4) Dyslipidemia Is this a current diagnosis for this admission?: Yes Plan: We will continue to hold statin related to recently elevated LFTs. Patient may resume following discharge. - Time Time Spent with patient: Less than 15 minutes Medications reviewed and adjusted accordingly: Yes Anticipated discharge: Home
[2018-06-12] MEDS: MORPHINE SULFATE 10 MG/ML INJ IV PRN (18:56)
[2018-06-12] MEDS: NICOTINE 21 MG/24 HR PATCH.TD24 TD SCH (22:24)
[2018-06-13] MEDS: MORPHINE SULFATE 10 MG/ML INJ IV PRN ×2 (03:47→17:26)
[2018-06-13] MEDS: CALCIUM CARBONATE 500 MG TAB.CHEW PO PRN ×2 (03:47→19:50)
[2018-06-13] MEDS: NORMAL SALINE 1000 ML 1,000 ML IV PRN ×2 (03:51→21:22)
[2018-06-13] MEDS: KETOROLAC TROMETHAMINE INJ/PF 30 MG/1 ML SDV IV PRN (06:45)
[2018-06-13 06:58] LABS: ABSOLUTE EOSINOPHILS # (AUTO) 0.1 10^3/uL (0.0-0.6); ABSOLUTE LYMPHOCYTES (AUTO) 0.9 10^3/uL (0.5-4.7); ABSOLUTE MONOCYTES (AUTO) 0.7 10^3/uL (0.1-1.4); ABSOLUTE NEUT (AUTO) 6.4 10^3/uL (1.7-8.2); BASOPHILS % (AUTO) 0.2 % (0-2); EOSINOPHILS % (AUTO) 1.4 % (0-6); HEMATOCRIT 34.4 % (37.9-51.0); HEMOGLOBIN 11.7 g/dL (13.5-17.0); LYMPHOCYTES % (AUTO) 10.8 % (13-45); MEAN CORPUSCULAR HEMOGLOBIN 32.6 pg (27.0-33.4); MEAN CORPUSCULAR HGB CONC 34.2 g/dL (32.0-36.0); MEAN CORPUSCULAR VOLUME 96 fl (80-97); MONOCYTES % (AUTO) 8.9 % (3-13); PLATELET COUNT 208 10^3/uL (150-450); RED CELL DISTRIBUTION WIDTH 13.6 % (11.5-14.0); SEGMENTED NEUTROPHILS % (AUTO) 78.7 % (42-78); TOTAL CELLS COUNTED % (AUTO) 100 %; WHITE BLOOD COUNT 8.2 10^3/uL (4.0-10.5)
[2018-06-13 07:14] LABS: ALANINE AMINOTRANSFERASE 166 U/L (21-72); ALBUMIN 2.7 g/dL (3.5-5.0); ALKALINE PHOSPHATASE 178 U/L (38-126); ANION GAP 10 (5-19); ASPARTATE AMINO TRANSFERASE 240 U/L (17-59); BILIRUBIN,DIRECT 0.4 mg/dL (0.0-0.4); BILIRUBIN,TOTAL 0.6 mg/dL (0.2-1.3); BLOOD UREA NITROGEN 10 mg/dL (7-20); CALCIUM 9.1 mg/dL (8.4-10.2); CARBON DIOXIDE 25 mmol/L (22-30); CHLORIDE 103 mmol/L (98-107); GLUCOSE 80 mg/dL (75-110); LIPASE 478.9 U/L (23-300); POTASSIUM 3.7 mmol/L (3.6-5.0); SODIUM 138.3 mmol/L (137-145); TOTAL PROTEIN 5.1 g/dL (6.3-8.2)
--- NOTE | 2018-06-13 09:58 | PDOC PROGRESS REPORT ---
Subjective Progress Note for:: 06/13/18 Subjective:: Feels well. Tolerating a diet but still having some degree of right upper quadrant abdominal pain. Reason For Visit: GALLSTONE PANCREATITIS Physical Exam Vital Signs: Temp Pulse Resp BP Pulse Ox 98.4 F 95 18 151/92 H 96 06/13/18 08:23 06/13/18 08:23 06/13/18 08:23 06/13/18 08:23 06/13/18 08:23 Intake & Output 06/12/18 06/13/18 06/14/18 06:59 06:59 06:59 Intake Total 5275 440 Output Total 690 Balance 4585 440 Weight 86.2 kg 85.7 kg General appearance: PRESENT: no acute distress, cooperative Respiratory exam: PRESENT: clear to auscultation janel Cardiovascular exam: PRESENT: RRR GI/Abdominal exam: PRESENT: other - Soft, mild tenderness to palpation at the epigastric and the right upper quadrant without peritoneal signs. Results Laboratory Results: 06/13/18 06:38 06/13/18 06:38 06/13/18 06/13/18 06:38 06:38 WBC 8.2 RBC 3.60 L Hgb 11.7 L Hct 34.4 L MCV 96 MCH 32.6 MCHC 34.2 RDW 13.6 Plt Count 208 Seg Neutrophils % 78.7 H Lymphocytes % 10.8 L Monocytes % 8.9 Eosinophils % 1.4 Basophils % 0.2 Absolute Neutrophils 6.4 Absolute Lymphocytes 0.9 Absolute Monocytes 0.7 Absolute Eosinophils 0.1 Absolute Basophils 0.0 Sodium 138.3 Potassium 3.7 Chloride 103 Carbon Dioxide 25 Anion Gap 10 BUN 10 Creatinine 0.70 Est GFR ( Amer) > 60 Est GFR (Non-Af Amer) > 60 Glucose 80 Calcium 9.1 Total Bilirubin 0.6 AST 240 H ALT 166 H Alkaline Phosphatase 178 H Total Protein 5.1 L Albumin 2.7 L Lipase 478.9 H Impressions: Abdomen/Pelvis CT 06/10/18 09:14 IMPRESSION: Fatty liver Minimal retroperitoneal inflammation around the pancreatic head, worrisome for pancreatitis Abdomen Ultrasound 06/10/18 09:52 IMPRESSION: 1. Distended gallbladder with no cholelithiasis or gallbladder wall thickening. Tenderness over the gallbladder during ultrasound scanning. If there is clinical concern for acalculous cholecystitis, hepatobiliary scan can be obtained for further evaluation. 2. Fatty infiltration of the liver. 3. Obscured pancreas. Assessment & Plan - Diagnosis (1) Gallstone pancreatitis Is this a current diagnosis for this admission?: Yes Plan: Patient still with evidence of gallstone pancreatitis by laboratory evaluation. Will back off the diet to clear liquids for right now. If he has any worsening will put him on bowel rest. We will keep him in the hospital and repeat his laboratory work tomorrow. If his LFTs are persistently elevated in the next several days he may benefit from an ERCP.
[2018-06-13] MEDS ORDERED: CELECOXIB 200 MG CAPSULE PO SCH (10:00)
[2018-06-13] MEDS: LISINOPRIL 10 MG TABLET PO SCH (10:42)
[2018-06-13] MEDS: DULOXETINE HCL 30 MG CAPSULE.DR PO SCH (10:43)
[2018-06-13] MEDS: HYDROCHLOROTHIAZIDE 12.5 MG TABLET PO SCH (10:58)
[2018-06-13] MEDS ORDERED: AMLODIPINE BESYLATE 5 MG TABLET PO ONE ×2 (13:30→22:00)
--- NOTE | 2018-06-13 16:51 | PDOC PROGRESS REPORT ---
Subjective Progress Note for:: 06/13/18 Subjective:: The patient is a 57-year-old male with past medical history significant for hypertension, hyperlipidemia, and tobacco abuse with continuous use who was admitted 06/10/18 by the surgical team for acute cholecystitis. The patient is seen on rounds POD#[address] Short. He is found sitting up to the edge of the bed, comfortably, on room air. He reports that he is feeling well today; he does continue a slight right upper quadrant and epigastric pain. He notes that he has a large area of bruising in the surgical site. He reports that he is disappointed to learn that he needs to stay in the hospital for observation due to elevated LFTs. Otherwise, he has no new questions or concerns. He denies headaches, dizziness, blurred vision, chest pain, palpitations, dyspnea, orthopnea, nausea and vomiting. Reason For Visit: GALLSTONE PANCREATITIS Physical Exam Vital Signs: Temp Pulse Resp BP Pulse Ox 98.3 F 85 16 160/102 H 98 06/13/18 16:00 06/13/18 16:00 06/13/18 16:00 06/13/18 16:00 06/13/18 11:17 Intake & Output 06/12/18 06/13/18 06/14/18 06:59 06:59 06:59 Intake Total 5275 440 450 Output Total 690 Balance 4585 440 450 Weight 86.2 kg 85.7 kg General appearance: PRESENT: no acute distress, cooperative, well-developed, well-nourished Head exam: PRESENT: atraumatic, normocephalic Eye exam: PRESENT: conjunctiva pink, EOMI, PERRLA. ABSENT: scleral icterus Mouth exam: PRESENT: moist Neck exam: ABSENT: carotid bruit, JVD, lymphadenopathy, thyromegaly Respiratory exam: PRESENT: clear to auscultation janel, symmetrical, unlabored. ABSENT: rales, rhonchi, wheezes Cardiovascular exam: PRESENT: RRR. ABSENT: diastolic murmur, rubs, systolic murmur Pulses: PRESENT: normal dorsalis pedis pul Vascular exam: PRESENT: normal capillary refill GI/Abdominal exam: PRESENT: normal bowel sounds, soft, tenderness. ABSENT: distended, guarding, mass, organolmegaly, rebound Rectal exam: PRESENT: deferred Extremities exam: PRESENT: full ROM. ABSENT: calf tenderness, clubbing, pedal edema Neurological exam: PRESENT: alert, awake, oriented to person, oriented to place , oriented to time, oriented to situation, CN II-XII grossly intact. ABSENT: motor sensory deficit Psychiatric exam: PRESENT: appropriate affect, normal mood. ABSENT: homicidal ideation, suicidal ideation Skin exam: PRESENT: dry, intact, warm. ABSENT: cyanosis, rash Results Laboratory Results: 06/13/18 06:38 06/13/18 06:38 06/13/18 06/13/18 06:38 06:38 WBC 8.2 RBC 3.60 L Hgb 11.7 L Hct 34.4 L MCV 96 MCH 32.6 MCHC 34.2 RDW 13.6 Plt Count 208 Seg Neutrophils % 78.7 H Lymphocytes % 10.8 L Monocytes % 8.9 Eosinophils % 1.4 Basophils % 0.2 Absolute Neutrophils 6.4 Absolute Lymphocytes 0.9 Absolute Monocytes 0.7 Absolute Eosinophils 0.1 Absolute Basophils 0.0 Sodium 138.3 Potassium 3.7 Chloride 103 Carbon Dioxide 25 Anion Gap 10 BUN 10 Creatinine 0.70 Est GFR ( Amer) > 60 Est GFR (Non-Af Amer) > 60 Glucose 80 Calcium 9.1 Total Bilirubin 0.6 AST 240 H ALT 166 H Alkaline Phosphatase 178 H Total Protein 5.1 L Albumin 2.7 L Lipase 478.9 H Impressions: Abdomen/Pelvis CT 06/10/18 09:14 IMPRESSION: Fatty liver Minimal retroperitoneal inflammation around the pancreatic head, worrisome for pancreatitis Abdomen Ultrasound 06/10/18 09:52 IMPRESSION: 1. Distended gallbladder with no cholelithiasis or gallbladder wall thickening. Tenderness over the gallbladder during ultrasound scanning. If there is clinical concern for acalculous cholecystitis, hepatobiliary scan can be obtained for further evaluation. 2. Fatty infiltration of the liver. 3. Obscured pancreas. Assessment & Plan - Diagnosis (1) Gallstone pancreatitis Is this a current diagnosis for this admission?: Yes Plan: Lipase is trended down following cholecystectomy; 3188 --> 878. The patient is now tolerating a regular diet. He continues to receive maintenance IV fluids. He is provided antiemetics and analgesics as needed. Antibiotics per surgical team. Primary plan per surgery. (2) Hypertension Qualifiers: Hypertension type: essential hypertension Qualified Code(s): I10 - Essential (primary) hypertension Is this a current diagnosis for this admission?: Yes Plan: Remains elevated despite resuming his home regiment and obtaining adequate pain control. Continue his home maintenance medications; lisinopril/HCTZ. Have added amlodipine 5 mg once daily. Optimize pain management. IV labetalol as needed for blood pressure control. (3) Tobacco abuse Is this a current diagnosis for this admission?: Yes Plan: Smoking cessation is encouraged; nicotine with placement therapies are provided. (4) Dyslipidemia Is this a current diagnosis for this admission?: Yes Plan: We will continue to hold statin related to elevated LFTs. - Time Time Spent with patient: Less than 15 minutes Medications reviewed and adjusted accordingly: Yes Anticipated discharge: Home Within: Other - Medically clear for discharge; at surgeries discretion.
--- NOTE | 2018-06-13 20:06 | PDOC PROGRESS REPORT ---
Subjective Progress Note for:: 06/13/18 Subjective:: Patient notes worsened abdominal pain with a burning type of sensation. Abdominal distention. No nausea or vomiting however. No shortness of breath. Reason For Visit: GALLSTONE PANCREATITIS Physical Exam Vital Signs: Temp Pulse Resp BP Pulse Ox 98.1 F 87 20 164/97 H 96 06/13/18 17:59 06/13/18 17:59 06/13/18 17:59 06/13/18 17:59 06/13/18 17:59 Intake & Output 06/12/18 06/13/18 06/14/18 06:59 06:59 06:59 Intake Total 5275 440 870 Output Total 690 Balance 4585 440 870 Weight 86.2 kg 85.7 kg General appearance: PRESENT: no acute distress, cooperative Respiratory exam: PRESENT: clear to auscultation janel Cardiovascular exam: PRESENT: RRR GI/Abdominal exam: PRESENT: other - Distended, soft, bruising along the right lateral abdomen. Mild diffuse abdominal tenderness. Results Laboratory Results: 06/13/18 06:38 06/13/18 06:38 06/13/18 06/13/18 06:38 06:38 WBC 8.2 RBC 3.60 L Hgb 11.7 L Hct 34.4 L MCV 96 MCH 32.6 MCHC 34.2 RDW 13.6 Plt Count 208 Seg Neutrophils % 78.7 H Lymphocytes % 10.8 L Monocytes % 8.9 Eosinophils % 1.4 Basophils % 0.2 Absolute Neutrophils 6.4 Absolute Lymphocytes 0.9 Absolute Monocytes 0.7 Absolute Eosinophils 0.1 Absolute Basophils 0.0 Sodium 138.3 Potassium 3.7 Chloride 103 Carbon Dioxide 25 Anion Gap 10 BUN 10 Creatinine 0.70 Est GFR ( Amer) > 60 Est GFR (Non-Af Amer) > 60 Glucose 80 Calcium 9.1 Total Bilirubin 0.6 AST 240 H ALT 166 H Alkaline Phosphatase 178 H Total Protein 5.1 L Albumin 2.7 L Lipase 478.9 H Impressions: Abdomen/Pelvis CT 06/10/18 09:14 IMPRESSION: Fatty liver Minimal retroperitoneal inflammation around the pancreatic head, worrisome for pancreatitis Abdomen Ultrasound 06/10/18 09:52 IMPRESSION: 1. Distended gallbladder with no cholelithiasis or gallbladder wall thickening. Tenderness over the gallbladder during ultrasound scanning. If there is clinical concern for acalculous cholecystitis, hepatobiliary scan can be obtained for further evaluation. 2. Fatty infiltration of the liver. 3. Obscured pancreas. Assessment & Plan - Diagnosis (1) Gallstone pancreatitis Is this a current diagnosis for this admission?: Yes Plan: Patient with evidence of continue pancreatitis. Will place him on bowel rest. IV fluids. We will change his IV morphine to Dilaudid. Will recheck labs in the morning. If his LFTs continues to be markedly elevated will obtain GI consult for possible ERCP.
[2018-06-13] MEDS ORDERED: DEXTROSE 40% GEL 15 GM TUBE PO PRN ×2 (20:07)
[2018-06-13] MEDS ORDERED: DEXTROSE 50%-WATER 25 GM/50 ML DISP.SYRIN IV PRN ×2 (20:07)
[2018-06-13] MEDS ORDERED: GLUCAGON,HUMAN RECOMB 1 MG INJ SUBCUT PRN (20:07)
[2018-06-13] MEDS: FAMOTIDINE INJ/PF 20 MG/2 ML SDV IV SCH (21:21)
[2018-06-13] MEDS: NICOTINE 21 MG/24 HR PATCH.TD24 TD SCH (21:21)
[2018-06-13] MEDS: HYDROMORPHONE HCL INJ/PF 2 MG/ML AMPULE IV PRN (22:30)
[2018-06-14] MEDS: HYDROMORPHONE HCL INJ/PF 2 MG/ML AMPULE IV PRN ×5 (02:24→21:37)
[2018-06-14] MEDS: NORMAL SALINE 1000 ML 1,000 ML IV PRN ×3 (05:28→21:38)
[2018-06-14 06:46] LABS: HEMATOCRIT 32.6 % (37.9-51.0); HEMOGLOBIN 11.3 g/dL (13.5-17.0); MEAN CORPUSCULAR HEMOGLOBIN 32.3 pg (27.0-33.4); MEAN CORPUSCULAR HGB CONC 34.6 g/dL (32.0-36.0); MEAN CORPUSCULAR VOLUME 93 fl (80-97); PLATELET COUNT 241 10^3/uL (150-450); RED BLOOD COUNT 3.49 10^6/uL (4.35-5.55); RED CELL DISTRIBUTION WIDTH 13.5 % (11.5-14.0); WHITE BLOOD COUNT 7.1 10^3/uL (4.0-10.5)
[2018-06-14 07:10] LABS: ALANINE AMINOTRANSFERASE 109 U/L (21-72); ALBUMIN 2.7 g/dL (3.5-5.0); ALKALINE PHOSPHATASE 118 U/L (38-126); ANION GAP 10 (5-19); ASPARTATE AMINO TRANSFERASE 75 U/L (17-59); BILIRUBIN,DIRECT 0.3 mg/dL (0.0-0.4); BILIRUBIN,TOTAL 0.6 mg/dL (0.2-1.3); BLOOD UREA NITROGEN 9 mg/dL (7-20); CARBON DIOXIDE 25 mmol/L (22-30); CHLORIDE 101 mmol/L (98-107); GLUCOSE 74 mg/dL (75-110); LIPASE 33.2 U/L (23-300); POTASSIUM 3.5 mmol/L (3.6-5.0); SODIUM 136.1 mmol/L (137-145); TOTAL PROTEIN 4.7 g/dL (6.3-8.2)
[2018-06-14] MEDS: HYDROCHLOROTHIAZIDE 12.5 MG TABLET PO SCH (07:45)
--- NOTE | 2018-06-14 09:52 | PDOC PROGRESS REPORT ---
Subjective Progress Note for:: 06/14/18 Subjective:: Still having some abdominal pain but has improved since yesterday. No emesis. Passing a little bit of gas. Still feels bloated. Reason For Visit: GALLSTONE PANCREATITIS Physical Exam Vital Signs: Temp Pulse Resp BP Pulse Ox 98.6 F 94 16 149/98 H 93 06/14/18 07:53 06/14/18 07:53 06/14/18 07:53 06/14/18 07:53 06/14/18 07:53 Intake & Output 06/13/18 06/14/18 06/15/18 06:59 06:59 06:59 Intake Total 440 1842 Output Total 1245 Balance 440 597 Weight 85.7 kg General appearance: PRESENT: no acute distress, cooperative Respiratory exam: PRESENT: clear to auscultation janel Cardiovascular exam: PRESENT: RRR GI/Abdominal exam: PRESENT: soft - Moderately distended. Mild right-sided abdominal tenderness without peritoneal signs. Improved from yesterday. The bruising has not spread in the patient's right lateral abdomen. The periumbilical region appears better. Extremities exam: PRESENT: other - No swelling and no tenderness Results Laboratory Results: 06/14/18 06:15 06/14/18 06:15 06/14/18 06/14/18 06:15 06:15 WBC 7.1 RBC 3.49 L Hgb 11.3 L Hct 32.6 L MCV 93 MCH 32.3 MCHC 34.6 RDW 13.5 Plt Count 241 Sodium 136.1 L Potassium 3.5 L Chloride 101 Carbon Dioxide 25 Anion Gap 10 BUN 9 Creatinine 0.60 Est GFR ( Amer) > 60 Est GFR (Non-Af Amer) > 60 Glucose 74 L Calcium 8.0 L Total Bilirubin 0.6 AST 75 H ALT 109 H Alkaline Phosphatase 118 Total Protein 4.7 L Albumin 2.7 L Lipase 33.2 Impressions: Abdomen/Pelvis CT 06/10/18 09:14 IMPRESSION: Fatty liver Minimal retroperitoneal inflammation around the pancreatic head, worrisome for pancreatitis Abdomen Ultrasound 06/10/18 09:52 IMPRESSION: 1. Distended gallbladder with no cholelithiasis or gallbladder wall thickening. Tenderness over the gallbladder during ultrasound scanning. If there is clinical concern for acalculous cholecystitis, hepatobiliary scan can be obtained for further evaluation. 2. Fatty infiltration of the liver. 3. Obscured pancreas. Assessment & Plan - Diagnosis (1) Gallstone pancreatitis Is this a current diagnosis for this admission?: Yes Plan: Exam and his numbers look much improved from yesterday. Will encourage ambulation. Continue bowel rest. If patient continues to improve will plan a diet tomorrow with probable discharge on .
[2018-06-14] MEDS ORDERED: AMLODIPINE BESYLATE 5 MG TABLET PO SCH (10:00)
[2018-06-14] MEDS: LISINOPRIL 10 MG TABLET PO SCH (10:01)
[2018-06-14] MEDS: DULOXETINE HCL 30 MG CAPSULE.DR PO SCH (10:02)
[2018-06-14] MEDS: FAMOTIDINE INJ/PF 20 MG/2 ML SDV IV SCH ×2 (10:03→21:36)
[2018-06-14] MEDS: NICOTINE 21 MG/24 HR PATCH.TD24 TD SCH (21:37)
--- NOTE | 2018-06-14 22:28 | PDOC PROGRESS REPORT ---
Subjective Progress Note for:: 06/14/18 Subjective:: 57 y.o. M admitted for gallstone pancreatitis. POD#3 acute cholecystecomy The patient is a 57-year-old male with past medical history significant for hypertension, hyperlipidemia, and tobacco abuse with continuous use who was admitted 06/10/18 by the surgical team for acute cholecystitis. The patient is seen on rounds. He is resting comfortably in bed. He states his abdominal pain has greatly improved compared to yesterday. Additionally, the patient states he feels that the 'swelling' to his abdomen has decreased. There is a small area of bruising noted to the L flank and periumbilical regions. The patient states these have been present since surgery and they are looking/ feeling better. The patient's blood pressure continues to remain elevated, SBP in the 150s. Plan to increase anti-HTN regimen today. Reason For Visit: GALLSTONE PANCREATITIS Physical Exam Vital Signs: Temp Pulse Resp BP Pulse Ox 98.1 F 86 18 152/94 H 96 06/14/18 20:26 06/14/18 20:26 06/14/18 20:26 06/14/18 20:26 06/14/18 20:26 Intake & Output 06/13/18 06/14/18 06/15/18 06:59 06:59 06:59 Intake Total 440 1842 1850 Output Total 1245 1350 Balance 440 597 500 Weight 85.7 kg 88.2 kg General appearance: PRESENT: no acute distress Eye exam: PRESENT: conjunctiva pink, PERRLA Mouth exam: PRESENT: moist Teeth exam: PRESENT: poor dentation Neck exam: PRESENT: full ROM Respiratory exam: PRESENT: clear to auscultation janel, symmetrical, unlabored Cardiovascular exam: PRESENT: +S1, +S2 Pulses: PRESENT: normal radial pulses, normal dorsalis pedis pul GI/Abdominal exam: PRESENT: distended - mild, normal bowel sounds, soft, tenderness. ABSENT: firm, guarding Rectal exam: PRESENT: deferred Extremities exam: PRESENT: full ROM. ABSENT: pedal edema Musculoskeletal exam: PRESENT: ambulatory, full ROM Neurological exam: PRESENT: alert, awake, oriented to person, oriented to place , oriented to time, oriented to situation Psychiatric exam: PRESENT: appropriate affect Skin exam: PRESENT: dry, normal color Results Laboratory Results: 06/14/18 06:15 06/14/18 06:15 06/14/18 06/14/18 06:15 06:15 WBC 7.1 RBC 3.49 L Hgb 11.3 L Hct 32.6 L MCV 93 MCH 32.3 MCHC 34.6 RDW 13.5 Plt Count 241 Sodium 136.1 L Potassium 3.5 L Chloride 101 Carbon Dioxide 25 Anion Gap 10 BUN 9 Creatinine 0.60 Est GFR ( Amer) > 60 Est GFR (Non-Af Amer) > 60 Glucose 74 L Calcium 8.0 L Total Bilirubin 0.6 AST 75 H ALT 109 H Alkaline Phosphatase 118 Total Protein 4.7 L Albumin 2.7 L Lipase 33.2 Impressions: Abdomen/Pelvis CT 06/10/18 09:14 IMPRESSION: Fatty liver Minimal retroperitoneal inflammation around the pancreatic head, worrisome for pancreatitis Abdomen Ultrasound 06/10/18 09:52 IMPRESSION: 1. Distended gallbladder with no cholelithiasis or gallbladder wall thickening. Tenderness over the gallbladder during ultrasound scanning. If there is clinical concern for acalculous cholecystitis, hepatobiliary scan can be obtained for further evaluation. 2. Fatty infiltration of the liver. 3. Obscured pancreas. Status: Imported from PACS Assessment & Plan - Diagnosis (1) Gallstone pancreatitis Is this a current diagnosis for this admission?: Yes Plan: Lipase is trended down following cholecystectomy; 3188 --> 878. The patient is now tolerating a regular diet. He continues to receive maintenance IV fluids. He is provided antiemetics and analgesics as needed. Antibiotics per surgical team. Primary plan per surgery. (2) Hypertension Qualifiers: Hypertension type: essential hypertension Qualified Code(s): I10 - Essential (primary) hypertension Is this a current diagnosis for this admission?: Yes Plan: Remains elevated despite resuming his home regiment and obtaining adequate pain control. Continue his home maintenance medications; lisinopril/HCTZ. Increased amlodipine from 5 mg to 10 mg PO once daily. Optimize pain management. IV labetalol as needed for blood pressure control. (3) Dyslipidemia Is this a current diagnosis for this admission?: Yes Plan: Hold statin related to elevated LFTs. (4) Tobacco abuse Is this a current diagnosis for this admission?: Yes Plan: Smoking cessation is encouraged; nicotine with placement therapies are provided. - Time Time Spent with patient: 15-24 minutes Medications reviewed and adjusted accordingly: Yes Anticipated discharge: Home - Inpatient Certification Based on my medical assessment, after consideration of the patient's comorbidities, presenting symptoms, or acuity I expect that the services needed warrant INPATIENT care.: Yes I certify that my determination is in accordance with my understanding of Medicare's requirements for reasonable and necessary INPATIENT services [42 CFR 412.3e].: Yes Medical Necessity: Risk of Complication if Not Cared For in Hospital - Plan Summary Plan Summary: CONTINUE TO MONITOR BLOOD PRESSURE. MAKE ADJUSTMENTS TO ANTI-HTN NEEDED.
[2018-06-15] MEDS: HYDROMORPHONE HCL INJ/PF 2 MG/ML AMPULE IV PRN ×3 (03:27→12:58)
[2018-06-15] MEDS: NORMAL SALINE 1000 ML 1,000 ML IV PRN ×2 (05:59→22:27)
[2018-06-15 07:04] LABS: ALANINE AMINOTRANSFERASE 87 U/L (21-72); ALBUMIN 2.9 g/dL (3.5-5.0); ALKALINE PHOSPHATASE 112 U/L (38-126); ANION GAP 13 (5-19); ASPARTATE AMINO TRANSFERASE 48 U/L (17-59); BILIRUBIN,DIRECT 0.3 mg/dL (0.0-0.4); BILIRUBIN,TOTAL 0.5 mg/dL (0.2-1.3); BLOOD UREA NITROGEN 11 mg/dL (7-20); CALCIUM 8.3 mg/dL (8.4-10.2); CARBON DIOXIDE 22 mmol/L (22-30); CHLORIDE 102 mmol/L (98-107); GLUCOSE 59 mg/dL (75-110); LIPASE 32.4 U/L (23-300); POTASSIUM 3.8 mmol/L (3.6-5.0); SODIUM 137.1 mmol/L (137-145); TOTAL PROTEIN 5.2 g/dL (6.3-8.2)
[2018-06-15] MEDS: HYDROCHLOROTHIAZIDE 12.5 MG TABLET PO SCH (08:15)
[2018-06-15] MEDS: DULOXETINE HCL 30 MG CAPSULE.DR PO SCH (10:24)
[2018-06-15] MEDS: DOCUSATE SODIUM 100 MG CAPSULE PO SCH ×2 (10:24→18:20)
[2018-06-15] MEDS: FAMOTIDINE INJ/PF 20 MG/2 ML SDV IV SCH ×2 (10:25→22:23)
[2018-06-15] MEDS: AMLODIPINE BESYLATE 5 MG TABLET PO SCH (10:25)
[2018-06-15] MEDS: LISINOPRIL 10 MG TABLET PO SCH (10:25)
[2018-06-15] MEDS ORDERED: LISINOPRIL 10 MG TABLET PO ONE (15:00)
[2018-06-15] MEDS ORDERED: LISINOPRIL 10 MG TABLET ONE (18:13)
[2018-06-15] MEDS: OXYCODONE HCL IR 5 MG TABLET PO PRN ×2 (18:19→22:24)
--- NOTE | 2018-06-15 18:43 | PDOC PROGRESS REPORT ---
Subjective Progress Note for:: 06/15/18 Subjective:: 57 y.o. M admitted for gallstone pancreatitis. POD#3 acute cholecystecomy The patient is a 57-year-old male with past medical history significant for hypertension, hyperlipidemia, and tobacco abuse with continuous use who was admitted 06/10/18 by the surgical team for acute cholecystitis. The patient is seen on rounds. He is resting comfortably in bed. He states his abdominal pain is relatively mild. There is a small area of bruising noted to the L flank and periumbilical regions. The patient was started on a clear liquid diet today, he is tolerating that well. The patient's blood pressure continues to remain elevated, SBP in the 150s. Plan to increase anti-HTN regimen today. Reason For Visit: GALLSTONE PANCREATITIS Physical Exam Vital Signs: Temp Pulse Resp BP Pulse Ox 97.8 F 87 17 149/88 H 95 06/15/18 16:07 06/15/18 16:07 06/15/18 16:07 06/15/18 16:07 06/15/18 16:07 Intake & Output 06/14/18 06/15/18 06/16/18 06:59 06:59 06:59 Intake Total 1842 2850 Output Total 1245 2600 500 Balance 597 250 -500 Weight 88.2 kg 87.2 kg General appearance: PRESENT: no acute distress, well-developed, well-nourished Head exam: PRESENT: atraumatic, normocephalic Eye exam: PRESENT: conjunctiva pink, EOMI, PERRLA. ABSENT: scleral icterus Ear exam: PRESENT: normal external ear exam Mouth exam: PRESENT: moist, tongue midline Neck exam: ABSENT: carotid bruit, JVD, lymphadenopathy, thyromegaly Respiratory exam: PRESENT: clear to auscultation janel. ABSENT: rales, rhonchi, wheezes Cardiovascular exam: PRESENT: RRR. ABSENT: diastolic murmur, rubs, systolic murmur Pulses: PRESENT: normal dorsalis pedis pul Vascular exam: PRESENT: normal capillary refill GI/Abdominal exam: PRESENT: distended, guarding, normal bowel sounds, soft, tenderness Rectal exam: PRESENT: deferred Extremities exam: PRESENT: full ROM. ABSENT: calf tenderness, clubbing, pedal edema Neurological exam: PRESENT: alert, awake, oriented to person, oriented to place , oriented to time, oriented to situation Psychiatric exam: PRESENT: appropriate affect, normal mood Skin exam: PRESENT: dry, intact, warm Results Laboratory Results: 06/14/18 06:15 06/15/18 06:11 06/15/18 06:11 Sodium 137.1 Potassium 3.8 Chloride 102 Carbon Dioxide 22 Anion Gap 13 BUN 11 Creatinine 0.65 Est GFR ( Amer) > 60 Est GFR (Non-Af Amer) > 60 Glucose 59 L Calcium 8.3 L Total Bilirubin 0.5 AST 48 ALT 87 H Alkaline Phosphatase 112 Total Protein 5.2 L Albumin 2.9 L Lipase 32.4 Impressions: Abdomen/Pelvis CT 06/10/18 09:14 IMPRESSION: Fatty liver Minimal retroperitoneal inflammation around the pancreatic head, worrisome for pancreatitis Abdomen Ultrasound 06/10/18 09:52 IMPRESSION: 1. Distended gallbladder with no cholelithiasis or gallbladder wall thickening. Tenderness over the gallbladder during ultrasound scanning. If there is clinical concern for acalculous cholecystitis, hepatobiliary scan can be obtained for further evaluation. 2. Fatty infiltration of the liver. 3. Obscured pancreas. Status: Imported from PACS Assessment & Plan - Diagnosis (1) Gallstone pancreatitis Is this a current diagnosis for this admission?: Yes Plan: Lipase is trended down following cholecystectomy; 3188 --> 32.4. The patient is now tolerating a clear liquid diet. He continues to receive maintenance IV fluids. He is provided antiemetics and analgesics as needed. Switched from IV to PO analgesia today for longer acting pain relief Antibiotics per surgical team. Primary plan per surgery. (2) Hypertension Qualifiers: Hypertension type: essential hypertension Qualified Code(s): I10 - Essential (primary) hypertension Is this a current diagnosis for this admission?: Yes Plan: Remains elevated despite resuming his home regiment and obtaining adequate pain control. Continue his home maintenance medications; lisinopril/HCTZ. Increased lisinopril from 10 to 20 mg PO daily Increased amlodipine from 5 mg to 10 mg PO once daily. Optimize pain management. IV labetalol as needed for blood pressure control. (3) Dyslipidemia Is this a current diagnosis for this admission?: Yes Plan: LFTs improving, can resume statins (4) Tobacco abuse Is this a current diagnosis for this admission?: Yes Plan: Smoking cessation is encouraged; nicotine with placement therapies are provided. - Time Time Spent with patient: 15-24 minutes Medications reviewed and adjusted accordingly: Yes Anticipated discharge: Home - Inpatient Certification Based on my medical assessment, after consideration of the patient's comorbidities, presenting symptoms, or acuity I expect that the services needed warrant INPATIENT care.: Yes I certify that my determination is in accordance with my understanding of Medicare's requirements for reasonable and necessary INPATIENT services [42 CFR 412.3e].: Yes Medical Necessity: Need For IV Fluids, Risk of Complication if Not Cared For in Hospital - Plan Summary Plan Summary: CONTINUE IVF. MONITOR BP WITH NEW REGIMEN.
[2018-06-15] MEDS: NICOTINE 21 MG/24 HR PATCH.TD24 TD SCH (22:24)
--- NOTE | 2018-06-16 01:03 | PDOC PROGRESS REPORT ---
Subjective Progress Note for:: 06/15/18 Reason For Visit: GALLSTONE PANCREATITIS Physical Exam Vital Signs: Temp Pulse Resp BP Pulse Ox 98.1 F 89 18 153/89 H 96 06/15/18 19:45 06/15/18 19:45 06/15/18 19:45 06/15/18 19:45 06/15/18 19:45 Intake & Output 06/14/18 06/15/18 06/16/18 06:59 06:59 06:59 Intake Total 1842 2850 1000 Output Total 1245 2600 500 Balance 597 250 500 Weight 88.2 kg 87.2 kg Results Laboratory Results: 06/14/18 06:15 06/15/18 06:11 06/15/18 06:11 Sodium 137.1 Potassium 3.8 Chloride 102 Carbon Dioxide 22 Anion Gap 13 BUN 11 Creatinine 0.65 Est GFR ( Amer) > 60 Est GFR (Non-Af Amer) > 60 Glucose 59 L Calcium 8.3 L Total Bilirubin 0.5 AST 48 ALT 87 H Alkaline Phosphatase 112 Total Protein 5.2 L Albumin 2.9 L Lipase 32.4 Impressions: Abdomen/Pelvis CT 06/10/18 09:14 IMPRESSION: Fatty liver Minimal retroperitoneal inflammation around the pancreatic head, worrisome for pancreatitis Abdomen Ultrasound 06/10/18 09:52 IMPRESSION: 1. Distended gallbladder with no cholelithiasis or gallbladder wall thickening. Tenderness over the gallbladder during ultrasound scanning. If there is clinical concern for acalculous cholecystitis, hepatobiliary scan can be obtained for further evaluation. 2. Fatty infiltration of the liver. 3. Obscured pancreas. Assessment & Plan - Diagnosis (1) Gallstone pancreatitis Is this a current diagnosis for this admission?: Yes - Plan Summary Plan Summary: This is a 57-year-old male status post cholecystectomy. The patient also has biliary pancreatitis. The patient is feeling better today. His amylase and lipase are trending downward. The patient is hungry. The patient wishes to advance his diet, but he has requested only full liquids at this time. I will advance the patient to full liquids. If he does well with full liquids, he may be able to advance to solid food tomorrow. Further recommendations will depend on the patient's clinical course.
[2018-06-16] MEDS: NORMAL SALINE 1000 ML 1,000 ML IV PRN (06:30)
[2018-06-16] MEDS: OXYCODONE HCL IR 5 MG TABLET PO PRN (06:31)
[2018-06-16] MEDS: HYDROCHLOROTHIAZIDE 12.5 MG TABLET PO SCH (08:57)
[2018-06-16] MEDS: DULOXETINE HCL 30 MG CAPSULE.DR PO SCH (09:00)
[2018-06-16] MEDS: AMLODIPINE BESYLATE 5 MG TABLET PO SCH (09:00)
[2018-06-16] MEDS: DOCUSATE SODIUM 100 MG CAPSULE PO SCH (09:01)
[2018-06-16] MEDS: FAMOTIDINE INJ/PF 20 MG/2 ML SDV IV SCH (09:02)
[2018-06-16] MEDS ORDERED: LISINOPRIL 10 MG TABLET PO SCH (10:00)
--- NOTE | 2018-06-16 10:10 | PDOC PROGRESS REPORT ---
Subjective Progress Note for:: 06/16/18 Subjective:: Patient feels very well. Wants to go home. Abdominal pain is markedly improved. Tolerating a diet well. Reason For Visit: GALLSTONE PANCREATITIS Physical Exam Vital Signs: Temp Pulse Resp BP Pulse Ox 98.2 F 84 16 143/76 H 94 06/16/18 07:42 06/16/18 07:42 06/16/18 07:42 06/16/18 07:42 06/16/18 07:42 Intake & Output 06/15/18 06/16/18 06/17/18 06:59 06:59 06:59 Intake Total 2850 1966 Output Total 2600 1375 Balance 250 591 Weight 87.2 kg 85 kg General appearance: PRESENT: no acute distress, cooperative Eye exam: PRESENT: conjunctiva pink Respiratory exam: PRESENT: clear to auscultation janel Cardiovascular exam: PRESENT: RRR GI/Abdominal exam: PRESENT: other - Soft, nondistended, minimal epigastric abdominal tenderness without peritoneal signs. Wounds are clean dry and intact. Bruising is slowly improving on the right. Extremities exam: PRESENT: other - No swelling and no tenderness. Results Laboratory Results: 06/14/18 06:15 06/15/18 06:11 Impressions: Abdomen/Pelvis CT 06/10/18 09:14 IMPRESSION: Fatty liver Minimal retroperitoneal inflammation around the pancreatic head, worrisome for pancreatitis Abdomen Ultrasound 06/10/18 09:52 IMPRESSION: 1. Distended gallbladder with no cholelithiasis or gallbladder wall thickening. Tenderness over the gallbladder during ultrasound scanning. If there is clinical concern for acalculous cholecystitis, hepatobiliary scan can be obtained for further evaluation. 2. Fatty infiltration of the liver. 3. Obscured pancreas. Assessment & Plan - Diagnosis (1) Gallstone pancreatitis Is this a current diagnosis for this admission?: Yes Plan: Patient looks very good this morning. Has had marked improvement. His LFTs yesterday had almost returned to completely normal. His lipase was normal as well. Will discharge patient home on a low-fat diet. Will have him follow-up with [facility] next week. He is encouraged to stay active but avoid strenuous activity. He is to call for any problems.
[2018-06-16 10:29] VITALS: BP 141/82
--- NOTE | 2018-06-16 10:40 | DISCHARGE SUMMARY E ---
Discharge Summary NAME: RAUL CLAIRE : 1960 AGE: 57Y ADMITTED: 06/10/2018 DISCHARGED: 06/16/2018 DISCHARGE DIAGNOSES: 1. Gallstone pancreatitis. 2. Hypertension. PROCEDURE PERFORMED DURING HOSPITALIZATION: Laparoscopic cholecystectomy, performed by Dr. Short on 06/11/2018. HOSPITAL COURSE: The patient underwent laparoscopic cholecystectomy. However, he was noted postoperatively with elevation of his lipase and his LFTs and diffuse abdominal pain. He was managed conservatively and he did well with marked improvement of his abdominal pain and his LFTs were turning to almost completely normal and his lipase returning to normal. The patient was tolerating a diet well, and was feeling quite well at the time of discharge. The patient is now being discharged to home in good condition. He will follow up with [facility] next week. He was encouraged to stay active, but avoid strenuous activity. He may shower. He is to follow a low-fat diet at home. He may resume his home medications. The patient did not want any narcotics for pain. He said that he would do fine with the Tramadol that he takes on a p.r.n. basis anyhow. DICTATING PHYSICIAN: WICHO CARBAJAL M.D. [id number] PHY#: [id number] ID: [id number] JOB#: [id number] ACCT: [id number] cc:Brenda OLSON M.D. >
== END 2018-06-16 11:45 | disposition home or self-care (01) | DRG 419 ==
LOC: ER 08:58 → EH 12:47 → 5 19:45 → 2N 06-12 16:11
PROVIDERS: ADMIT Surgery; ATTEND Surgery
PROC: 0FT44ZZ Resection of Gallbladder, Percutaneous Endoscopic Approach (ICD-10-PCS; principal; 2018-06-11 08:00)
DX: K85.10 Biliary acute pancreatitis without necrosis or infection (principal); I10 Essential (primary) hypertension; E78.00 Pure hypercholesterolemia, unspecified; M19.90 Unspecified osteoarthritis, unspecified site; F17.210 Nicotine dependence, cigarettes, uncomplicated; Z71.6 Tobacco abuse counseling
CPT/HCPCS: 36415; 74177; 76705; 790; 80053; 81001; 83690; 85025; 85027; 88304; 93005; 93010; 96361; 96374; 96375; 99285; J0131; J0330; J1170; J1335; J1885; J2250; J2270; J2370; J2550; J2704; J2765; J3010; J3490; J7030; S0028; S0119

== ENCOUNTER 2018-06-28 02:36 | Inpatient (IN) | payer MEDICARE ==
[2018-06-28] MEDS ORDERED: ASPIRIN 81 MG TABLET, CHEWABLE PO ONE (03:51)
--- NOTE | 2018-06-28 04:26 | RADIOLOGY REPORT (SQ) ---
EXAM DESCRIPTION: XR CHEST 1 VIEW COMPLETED DATE/TME: 06/28/2018 03:51 CLINICAL HISTORY: 57 years Male, chest pain COMPARISON: 10.11.16 NUMBER OF VIEWS/TECHNIQUE: 1/AP FINDINGS: Adequate lung volume, clear parenchyma, normal cardiac silhouette, atherosclerosis, and grossly intact bony thorax. IMPRESSION: No acute cardiopulmonary findings.
[2018-06-28 04:59] LABS: ABSOLUTE BASOPHILS # (AUTO) 0.1 10^3/uL (0.0-0.2); ABSOLUTE EOSINOPHILS # (AUTO) 0.1 10^3/uL (0.0-0.6); ABSOLUTE MONOCYTES (AUTO) 0.7 10^3/uL (0.1-1.4); ABSOLUTE NEUT (AUTO) 11.6 10^3/uL (1.7-8.2); BASOPHILS % (AUTO) 0.9 % (0-2); EOSINOPHILS % (AUTO) 0.6 % (0-6); HEMATOCRIT 43.3 % (37.9-51.0); HEMOGLOBIN 14.7 g/dL (13.5-17.0); LYMPHOCYTES % (AUTO) 7.6 % (13-45); MEAN CORPUSCULAR HEMOGLOBIN 31.9 pg (27.0-33.4); MEAN CORPUSCULAR VOLUME 94 fl (80-97); MONOCYTES % (AUTO) 5.5 % (3-13); PLATELET COUNT 516 10^3/uL (150-450); RED BLOOD COUNT 4.61 10^6/uL (4.35-5.55); RED CELL DISTRIBUTION WIDTH 14.1 % (11.5-14.0); SEGMENTED NEUTROPHILS % (AUTO) 85.4 % (42-78); TOTAL CELLS COUNTED % (AUTO) 100 %; WHITE BLOOD COUNT 13.5 10^3/uL (4.0-10.5)
[2018-06-28 06:35] LABS: ALANINE AMINOTRANSFERASE 99 U/L (21-72); ALBUMIN 3.9 g/dL (3.5-5.0); ALKALINE PHOSPHATASE 129 U/L (38-126); ANION GAP 11 (5-19); ASPARTATE AMINO TRANSFERASE 113 U/L (17-59); BILIRUBIN,DIRECT 0.3 mg/dL (0.0-0.4); BILIRUBIN,TOTAL 0.3 mg/dL (0.2-1.3); BLOOD UREA NITROGEN 12 mg/dL (7-20); CARBON DIOXIDE 25 mmol/L (22-30); CHLORIDE 104 mmol/L (98-107); CREATINE KINASE 29 U/L (55-170); GLUCOSE 104 mg/dL (75-110); LIPASE 359.8 U/L (23-300); POTASSIUM 4.6 mmol/L (3.6-5.0); SODIUM 140.1 mmol/L (137-145); TOTAL PROTEIN 6.8 g/dL (6.3-8.2)
[2018-06-28 06:47] LABS: CREATINE KINASE MB 0.35 ng/mL (<4.55); TROPONIN I < 0.012 ng/mL
--- NOTE | 2018-06-28 07:19 | ER Document Report ---
ED General - General Mode of Arrival: Ambulatory Information source: Patient TRAVEL OUTSIDE OF THE [place] IN LAST 30 DAYS: No <WAGNER PERSAUD - Last Filed: 06/28/18 07:22> <SHANNAN HSU - Last Filed: 06/28/18 13:02> - General Chief Complaint: Epigastric Pain Stated Complaint: CHEST PAIN Time Seen by Provider: 06/28/18 03:33 Notes: Patient is a 57-year-old male who presents with chief complaint of abdominal pain that started about 1230 this morning. Patient reports he had a lap cholecystectomy done [address] Short. Patient reports that he is now having abdominal pain that radiates around to his bilateral flanks and down to his groin. Patient reports he was seen by the surgery team yesterday morning for a routine follow-up and was cleared. Patient denies any fevers, reports the pain feels like a crampy pain but did come out of the blue. (WAGNER PERSAUD) - Related Data Allergies/Adverse Reactions: No Known Allergies Allergy (Verified 10/21/16 14:16) Past Medical History - General Information source: Patient - Social History Smoking Status: Never Smoker Frequency of alcohol use: None Drug Abuse: None Family History: Arthritis, Hypertension, Malignancy - Father with brain cancer. , Other - Mother with vascular disease and arthritis. - Past Medical History Cardiac Medical History: Reports: Hx Hypercholesterolemia, Hx Hypertension Renal/ Medical History: Denies: Hx Peritoneal Dialysis Musculoskeletal Medical History: Reports Hx Arthritis Psychiatric Medical History: Reports: Hx Depression Past Surgical History: Reports: Hx Cholecystectomy, Hx Orthopedic Surgery - neck - Immunizations Hx Diphtheria, Pertussis, Tetanus Vaccination: Yes <WAGNER PERSAUD - Last Filed: 06/28/18 07:22> Review of Systems - Review of Systems Constitutional: No symptoms reported EENT: No symptoms reported Cardiovascular: No symptoms reported Respiratory: No symptoms reported Gastrointestinal: See HPI. denies: Diarrhea, Nausea, Vomiting Genitourinary: No symptoms reported Male Genitourinary: No symptoms reported Musculoskeletal: No symptoms reported Skin: No symptoms reported Hematologic/Lymphatic: No symptoms reported Neurological/Psychological: No symptoms reported <WAGNER PERSAUD - Last Filed: 06/28/18 07:22> - Vital signs Vitals: Temp Pulse Resp BP Pulse Ox 97.8 F 107 H 20 115/86 H 94 06/28/18 02:42 06/28/18 02:42 06/28/18 02:42 06/28/18 02:42 06/28/18 02:42 - Notes Notes: PHYSICAL EXAMINATION: GENERAL: Well-appearing, well-nourished and in no acute distress. HEAD: Atraumatic, normocephalic. EYES: Pupils equal round and reactive to light, extraocular movements intact, sclera anicteric, conjunctiva are normal. ENT: Nares patent, oropharynx clear without exudates. Moist mucous membranes. NECK: Normal range of motion, supple without lymphadenopathy LUNGS: Breath sounds clear to auscultation bilaterally and equal. No wheezes rales or rhonchi. HEART: Regular rate and rhythm without murmurs ABDOMEN: Soft, nondistended abdomen. Generalized tenderness to palpation. No guarding, no rebound. No masses appreciated. Well approximated healing lap sites from previous gallbladder surgery. Musculoskeletal: Normal range of motion, no pitting or edema. No cyanosis. NEUROLOGICAL: Cranial nerves grossly intact. Normal speech, normal gait. Normal sensory, motor exams PSYCH: Normal mood, normal affect. SKIN: Warm, Dry, normal turgor, no rashes or lesions noted. (WAGNER PERSAUD) Course - Laboratory Result Diagrams: 06/28/18 04:40 06/28/18 06:02 <WAGNER PERSAUD - Last Filed: 06/28/18 07:22> - Laboratory Result Diagrams: 06/28/18 04:40 06/28/18 06:02 <SHANNAN HSU - Last Filed: 06/28/18 13:02> - Re-evaluation Re-evalutation: Otherwise healthy 57-year-old male presents with chief complaint of abdominal pain. Patient with recent cholecystectomy 3 weeks ago. Patient reports that the pain started around 1230 this morning, reports that the pain is mostly resolved now. CBC reveals leukocytosis with white blood count 13.5 with a left shift. Comprehensive metabolic panel is significant for elevated AST, ALT and alk phos. Lipase is elevated at 359. Patient will be sent for right upper quadrant ultrasound. Patient signed out to Eric Hsu NP, patient updated on plan of care. Patient declines need for any pain or nausea medications. ( WAGNER PERSAUD) Physician given by Wagner Persaud, SHANICE, 0715. Signs stable, no distress afebrile. 49-year-old male presents for evaluation of abdominal pain that started last night after eating pizza. Pain is mostly epigastric but he does have lower bilateral abdominal pain. Ultrasound right upper quadrant is ordered , awaiting to go. Right upper quadrant ultrasound shows a fatty infiltrated liver, common bile duct normal transverse without obstructing stone. CT abdomen and pelvis with IV contrast ordered. 0915- Patient remains afebrile vitals stable and in no distress. CT abdomen pelvis with IV contrast shows that patient has small benign 1 cm low-density mass on the pancreas a possible cyst or small lipoma. Diverticulosis involving the descending colon and sigmoid CT evidence of diverticulitis. Thickening of the wall and sigmoid of the previous CT scan is less impressive on today's study. Also Dr. Vincenzo Jerry, surgeon on-call at 12:15 for bedside consult due to patient having right upper quadrant abdominal pain, leukocytosis with left shift, elevated AST of 113 and lipase of 359 status post laparoscopic cholecystectomy for evaluation. 12:30-Dr. Ronnie Green, surgeon, at bedside to see patient. Per his note, he would will admit patient to medical floor for bowel rest and IV fluids for evaluation of gallstone pancreatitis and would like to consult gastroenterology for possible ERCP. she remains afebrile vitals stable and in no distress. (SHANNAN HSU) - Vital Signs Vital signs: Temp Pulse Resp BP Pulse Ox 98.0 F 107 H 14 132/88 H 94 06/28/18 06:01 06/28/18 02:42 06/28/18 08:30 06/28/18 08:30 06/28/18 08:30 - Laboratory Laboratory results interpreted by me: 06/28/18 06/28/18 04:40 06:02 WBC 13.5 H RDW 14.1 H Plt Count 516 H Seg Neutrophils % 85.4 H Lymphocytes % 7.6 L Absolute Neutrophils 11.6 H AST 113 H ALT 99 H Alkaline Phosphatase 129 H Creatine Kinase 29 L Lipase 359.8 H Discharge <WAGNER PERSAUD - Last Filed: 06/28/18 07:22> - Discharge Admitting Provider: Surgicalist - Dr. Ronnie Young Unit Admitted: Medical Floor <SHANNAN HSU - Last Filed: 06/28/18 13:02> - Discharge Clinical Impression: Gallstone pancreatitis Diverticulitis Qualifiers: Diverticulitis site: large intestine Condition: Stable Disposition: ADMITTED INPATIENT
[2018-06-28] MEDS ORDERED: CEFEPIME 2 GM/D5W RTU 2 GM/50 ML RTUPB IV ONE (07:22)
--- NOTE | 2018-06-28 08:24 | RADIOLOGY REPORT (SQ) ---
EXAM DESCRIPTION: U/S ABDOMEN LTD W/DOPPLER COMPLETED DATE/TIME: 06/28/2018 8:11 am REASON FOR STUDY: RUQ, EVAL FOR RETAINED STONE COMPARISON: 06/10/2018 TECHNIQUE: Dynamic and static grayscale images acquired of the abdomen and recorded on PACS. Allysono trent selected color Doppler and spectral images recorded. LIMITATIONS: None. FINDINGS: PANCREAS: Pancreatic head and body normal. Tail suboptimally visualized. LIVER: Normal size. 16.1 cm. Fatty infiltration. No masses. LIVER VASCULATURE: Normal directional flow of the main portal vein and hepatic veins. GALLBLADDER: Surgically absent. ULTRASOUND-DETECTED KELLEY'S SIGN: Negative. INTRAHEPATIC DUCTS AND COMMON DUCT: CBD and intrahepatic ducts normal caliber. No filling defects. INFERIOR VENA CAVA: Normal flow. AORTA: No aneurysm. RIGHT KIDNEY: Normal size. Normal echogenicity. No solid or suspicious masses. No hydronephrosis. No calcifications. PERITONEAL AND RIGHT PLEURAL SPACE: No ascites or effusions. OTHER: No other significant findings. IMPRESSION: Fatty infiltration of the liver. Suboptimal visualization of the tail of the pancreas. Status post cholecystectomy. Common bile duct normal in transverse diameter without obstructing sto ne identified. Distal portion suboptimally visualized. TECHNICAL DOCUMENTATION: JOB ID: [id number] [employer]- All Rights Reserved Reading location - IP/workstation name: [email or web address]
[2018-06-28 08:26] LABS: APPEARANCE,URINE CLEAR; BILIRUBIN,URINE NEGATIVE (NEGATIVE); COLOR,URINE YELLOW; GLUCOSE, URINE NEGATIVE (NEGATIVE); KETONES,URINE NEGATIVE (NEGATIVE); LEUKOCYTE ESTERASE,URINE NEGATIVE (NEGATIVE); NITRITE,URINE NEGATIVE (NEGATIVE); PROTEIN,URINE NEGATIVE (NEGATIVE); URINE SPECIFIC GRAVITY 1.017; UROBILINOGEN,URINE NEGATIVE mg/dL (<2.0)
--- NOTE | 2018-06-28 11:10 | RADIOLOGY REPORT (SQ) ---
EXAM DESCRIPTION: CT ABD/PELVIS WITH IV ONLY COMPLETED DATE/TIME: 06/28/2018 10:48 am REASON FOR STUDY: LLQ abd pain, RLQ abd pain. COMPARISON: 02/12/2017 TECHNIQUE: CT scan of the abdomen and pelvis performed using helical scanning technique with dynamic intravenous contrast injection. No oral contrast. Images reviewed with lung, soft tissue, and bone windows. Reconstructed coronal and sagittal MPR images reviewed. Delayed images for evaluation of the urinary system also acquired. All images stored on PACS. All CT scanners at this facility use dose modulation, iterative reconstruction, and/or weight based d osing when appropriate to reduce radiation dose to as low as reasonably achievable (ALARA). [facility]: Dose Right [facility]: CareDose [facility]: Dose Right [facility]: Teradose 4D [facility]: Syscor CONTRAST TYPE AND DOSE: contrast/concentration: Isovue 350.00 mg/ml; Total Contrast Delivered: 94.0 ml; Total Saline Delivered: 71.0 ml 94.2 cc Isovue 370- low osmolar. RENAL FUNCTION: Creatinine 0.71 RADIATION DOSE: CT Rad equipment meets quality standard of care and radiation dose reduction techniq ues were employed. CTDIvol: 8.3 - 11.6 mGy. DLP: 1095 mGy-cm.. LIMITATIONS: None. FINDINGS: LOWER CHEST: No significant findings. No nodules or infiltrates. LIVER: Normal size. No masses. No dilated ducts. SPLEEN: Normal size. No focal lesions. PANCREAS: Stable 1 cm low-density lesion body of the pancreas with CT attenuation values suggestive o f a cyst possibly small lipoma based on negative Hounsfield units. GALLBLADDER: Status post recent cholecystectomy. Satisfactory postop change with no inflammation or edema at the gallbladder bed. ADRENAL GLANDS: No significant masses or asymmetry. RIGHT KIDNEY AND URETER: No solid masses. No significant calcifications. No hydronephrosis or hyd roureter. LEFT KIDNEY AND URETER: No solid masses. No significant calcifications. No hydronephrosis or hydr oureter. AORTA AND VESSELS: No aneurysm. No dissection. Renal arteries, SMA, celiac without stenosis. RETROPERITONEUM: No retroperitoneal adenopathy, hemorrhage or masses. BOWEL AND PERITONEAL CAVITY: Scattered diverticuli descending colon and sigmoid. No CT evidence of acute inflammatory change. Wall thickening of the sigmoid noted on 02/12/2017 is less impressive on t gerry's examination. APPENDIX: Not visualized. PELVIS: No mass. No free fluid. Normal bladder. ABDOMINAL WALL: No masses. No hernias. BONES: No significant or acute findings. OTHER: No other significant finding. IMPRESSION: No acute findings. Status post recent cholecystectomy. Satisfactory postoperative braxton ge. Small probably benign 1 cm low-density mass involving the body the pancreas -cyst or possibly sm all lipoma. Diverticulosis involving the descending colon and sigmoid CT evidence of diverticulitis. Degree of thickening of the wall of the sigmoid on the previous CT scan is less impressive on today 's study. TECHNICAL DOCUMENTATION: JOB ID: [id number] Quality ID # [id number]: Final reports with documentation of one or more dose reduction techniques (e.g., Au tomated exposure control, adjustment of the mA and/or kV according to patient size, use of iterative reconstruction technique) 2010 [employer]- All Rights Reserved Reading location - IP/workstation name: [email or web address]
[2018-06-28] MEDS ORDERED: NORMAL SALINE 1000 ML 1,000 ML IV PRN (12:47)
[2018-06-28] MEDS ORDERED: METOCLOPRAMIDE HCL ORAL SOLN 10 MG/10 ML UDCUP PO ONE (12:48)
--- NOTE | 2018-06-28 12:48 | PDOC H&P ---
History of Present Illness Patient complains of: Epigastric abdominal pain History of Present Illness: RAUL CLAIRE is a 57 year old male with gallstone pancreatitis status post recent admission for laparoscopic cholecystectomy. Patient had resolution of his abdominal pain and did well after his surgery and was subsequently discharged. He was doing well at home and in fact had a follow-up at the [place] [facility] earlier this week. However last night after eating pizza developed sudden onset of epigastric abdominal pain very similar to his episode of pancreatitis in the past. The pain persisted and he came into the emergency department. He states that the pain is much improved at this time. He had associated nausea and malaise. No shortness of breath and no chest pain. No fever. Past Medical History Cardiac Medical History: Reports: Hyperlipidema, Hypertension Musculoskeltal Medical History: Reports: Arthritis Psychiatric Medical History: Reports: Depression Past Surgical History Past Surgical History: Reports: Cholecystectomy, Orthopedic Surgery - neck Social History Smoking Status: Never Smoker Frequency of Alcohol Use: Occasional Hx Recreational Drug Use: No Drugs: None Hx Prescription Drug Abuse: No Family History Family History: Arthritis, Hypertension, Malignancy - Father with brain cancer. , Other - Mother with vascular disease and arthritis. Parental Family History Reviewed: No Children Family History Reviewed: No Sibling(s) Family History Reviewed.: No Medication/Allergy Home Medications: Atorvastatin Calcium [Lipitor 40 mg Tablet] 40 mg PO QHS 06/10/18 Celecoxib [Celebrex 200 mg Capsule] 200 mg PO DAILY 06/10/18 Duloxetine HCl [Cymbalta] 60 mg PO DAILY 06/10/18 Lisinopril/Hydrochlorothiazide [Lisinopril-Hctz 10-12.5 mg Tab] 1 each PO QPM Lisinopril/Hydrochlorothiazide [Lisinopril-Hctz 10-12.5 mg Tab] 2 each PO ACLUNCH 06/10/18 Metaxalone [Skelaxin 800 mg Tablet] 800 mg PO TID 06/10/18 Tramadol HCl [Ultram 50 mg Tablet] 50 mg PO QIDP PRN 06/10/18 Allergies/Adverse Reactions: No Known Allergies Allergy (Verified 10/21/16 14:16) Physical Exam Vital Signs: Temp Pulse Resp BP Pulse Ox 98.0 F 107 H 14 132/88 H 94 06/28/18 06:01 06/28/18 02:42 06/28/18 08:30 06/28/18 08:30 06/28/18 08:30 Intake & Output 06/27/18 06/28/18 06/29/18 06:59 06:59 06:59 Intake Total 50 Balance 50 Results Laboratory Results: 06/28/18 04:40 06/28/18 06:02 06/28/18 06/28/18 06/28/18 04:40 04:40 05:52 WBC 13.5 H RBC 4.61 Hgb 14.7 Hct 43.3 MCV 94 MCH 31.9 MCHC 34.0 RDW 14.1 H Plt Count 516 H Seg Neutrophils % 85.4 H Lymphocytes % 7.6 L Monocytes % 5.5 Eosinophils % 0.6 Basophils % 0.9 Absolute Neutrophils 11.6 H Absolute Lymphocytes 1.0 Absolute Monocytes 0.7 Absolute Eosinophils 0.1 Absolute Basophils 0.1 Sodium Cancelled Potassium Cancelled Chloride Cancelled Carbon Dioxide Cancelled Anion Gap Cancelled BUN Cancelled Creatinine Cancelled Est GFR ( Amer) Cancelled Est GFR (Non-Af Amer) Cancelled Glucose Cancelled Lactic Acid Calcium Cancelled Total Bilirubin Cancelled AST Cancelled ALT Cancelled Alkaline Phosphatase Cancelled Total Protein Cancelled Albumin Cancelled Lipase Cancelled Urine Color YELLOW Urine Appearance CLEAR Urine pH 5.0 Ur Specific Raymond 1.017 Urine Protein NEGATIVE Urine Glucose (UA) NEGATIVE Urine Ketones NEGATIVE Urine Blood NEGATIVE Urine Nitrite NEGATIVE Ur Leukocyte Esterase NEGATIVE Urine WBC (Auto) 3 Urine RBC (Auto) 1 06/28/18 06/28/18 06:02 08:35 WBC RBC Hgb Hct MCV MCH MCHC RDW Plt Count Seg Neutrophils % Lymphocytes % Monocytes % Eosinophils % Basophils % Absolute Neutrophils Absolute Lymphocytes Absolute Monocytes Absolute Eosinophils Absolute Basophils Sodium 140.1 Potassium 4.6 Chloride 104 Carbon Dioxide 25 Anion Gap 11 BUN 12 Creatinine 0.71 Est GFR ( Amer) > 60 Est GFR (Non-Af Amer) > 60 Glucose 104 Lactic Acid 0.9 Calcium 10.0 Total Bilirubin 0.3 AST 113 H ALT 99 H Alkaline Phosphatase 129 H Total Protein 6.8 Albumin 3.9 Lipase 359.8 H Urine Color Urine Appearance Urine pH Ur Specific Raymond Urine Protein Urine Glucose (UA) Urine Ketones Urine Blood Urine Nitrite Ur Leukocyte Esterase Urine WBC (Auto) Urine RBC (Auto) 0806/28/18 06/28/18 04:40 04:40 06:02 Creatine Kinase Cancelled CK-MB (CK-2) Cancelled 0.35 Troponin I Cancelled < 0.012 06/28/18 06/28/18 06:02 10:20 Creatine Kinase 29 L CK-MB (CK-2) Troponin I < 0.012 Impressions: Chest X-Ray 06/28/18 03:51 IMPRESSION: No acute cardiopulmonary findings. Abdomen Ultrasound 06/28/18 06:47 IMPRESSION: Fatty infiltration of the liver. Suboptimal visualization of the tail of the pancreas. Status post cholecystectomy. Common bile duct normal in transverse diameter without obstructing stone identified. Distal portion suboptimally visualized. Abdomen/Pelvis CT 06/28/18 09:22 IMPRESSION: No acute findings. Status post recent cholecystectomy. Satisfactory postoperative change. Small probably benign 1 cm low-density mass involving the body the pancreas -cyst or possibly small lipoma. Diverticulosis involving the descending colon and sigmoid CT evidence of diverticulitis. Degree of thickening of the wall of the sigmoid on the previous CT scan is less impressive on today's study. Assessment & Plan - Diagnosis (1) Gallstone pancreatitis Is this a current diagnosis for this admission?: Yes Plan: Recurrent pancreatitis status post last admission where he underwent a laparoscopic cholecystectomy. Possible recurrent gallstone pancreatitis. In light of the recurrence of his pancreatitis will admit the patient and will consult gastroenterology for possible ERCP. We will keep the patient at bowel rest and on IV fluids for now. Patient with a pancreatic lesion that will need follow-up as an outpatient. I do not think it represents a pancreatic pseudocyst. (2) Diverticulitis Qualifiers: Diverticulitis site: large intestine Is this a current diagnosis for this admission?: No Plan: Patient has a history of diverticulitis in the past. He notes that he had a colonoscopy done about a year ago and was noted with no evidence of malignancy. He is noted on current CT with sigmoid colon thickening that has improved.
--- NOTE | 2018-06-28 13:46 | EKG REPORT ---
SEVERITY:- OTHERWISE NORMAL ECG - SINUS RHYTHM MINIMAL ST ELEVATION, INFERIOR LEADS : Confirmed by: Crystal Calle MD 28-Jun-2018 13:45:27
[2018-06-28] MEDS: NORMAL SALINE 1000 ML 1,000 ML IV PRN ×2 (13:48→22:52)
[2018-06-28] MEDS: HYDROMORPHONE HCL INJ/PF 2 MG/ML AMPULE IV PRN ×3 (13:49→22:52)
[2018-06-28] MEDS ORDERED: MORPHINE SULFATE 10 MG/ML INJ IV ONE (14:43)
[2018-06-28] MEDS ORDERED: (PENDING PHARMACY ID) (Lisinopril/Hydrochlorothiazide [Lisinopril-Hctz 10-12.5 Mg Tab] 1 E PO SCH (18:00)
[2018-06-28] MEDS ORDERED: NICOTINE 21 MG/24 HR PATCH.TD24 TD SCH (19:00)
[2018-06-29] MEDS: ATORVASTATIN CALCIUM 40 MG TABLET PO SCH ×2 (03:52→21:46)
[2018-06-29] MEDS: HYDROMORPHONE HCL INJ/PF 2 MG/ML AMPULE IV PRN ×2 (05:06→21:47)
[2018-06-29] MEDS: NORMAL SALINE 1000 ML 1,000 ML IV PRN ×2 (05:11→21:55)
[2018-06-29 06:30] LABS: HEMATOCRIT 39.5 % (37.9-51.0); HEMOGLOBIN 13.2 g/dL (13.5-17.0); MEAN CORPUSCULAR HEMOGLOBIN 31.4 pg (27.0-33.4); MEAN CORPUSCULAR HGB CONC 33.5 g/dL (32.0-36.0); MEAN CORPUSCULAR VOLUME 94 fl (80-97); PLATELET COUNT 394 10^3/uL (150-450); RED BLOOD COUNT 4.21 10^6/uL (4.35-5.55); WHITE BLOOD COUNT 5.1 10^3/uL (4.0-10.5)
[2018-06-29 07:04] LABS: ALANINE AMINOTRANSFERASE 510 U/L (21-72); ALBUMIN 3.1 g/dL (3.5-5.0); ALKALINE PHOSPHATASE 146 U/L (38-126); ANION GAP 8 (5-19); ASPARTATE AMINO TRANSFERASE 595 U/L (17-59); BILIRUBIN,DIRECT 0.5 mg/dL (0.0-0.4); BILIRUBIN,TOTAL 0.9 mg/dL (0.2-1.3); BLOOD UREA NITROGEN 11 mg/dL (7-20); CALCIUM 8.6 mg/dL (8.4-10.2); CARBON DIOXIDE 24 mmol/L (22-30); CHLORIDE 108 mmol/L (98-107); GLUCOSE 94 mg/dL (75-110); POTASSIUM 4.2 mmol/L (3.6-5.0); SODIUM 140.1 mmol/L (137-145); TOTAL PROTEIN 5.7 g/dL (6.3-8.2)
[2018-06-29 07:13] LABS: LIPASE 2479.2 U/L (23-300)
--- NOTE | 2018-06-29 09:07 | PDOC PROGRESS REPORT ---
Subjective Progress Note for:: 06/29/18 Subjective:: This is a 57-year-old male presenting to the hospital with abdominal pain. The patient underwent laparoscopic cholecystectomy approximately 2 weeks ago. Patient reports sharp stabbing abdominal pain that bores through to the back. His pain is improved today. The patient denies chest pain, shortness of breath , nausea, vomiting, diarrhea, melena, hematochezia, dizziness, orthostasis, rash , pruritus, headache. Reason For Visit: PANCREATITIS Physical Exam Vital Signs: Temp Pulse Resp BP Pulse Ox 97.8 F 77 18 127/83 H 97 06/29/18 07:36 06/29/18 07:36 06/29/18 07:36 06/29/18 07:36 06/29/18 07:36 Intake & Output 06/28/18 06/29/18 06/30/18 06:59 06:59 06:59 Intake Total 1539 Output Total 350 Balance 1189 Weight 80.2 kg General appearance: PRESENT: no acute distress Head exam: PRESENT: atraumatic, normocephalic Eye exam: PRESENT: EOMI, PERRLA. ABSENT: scleral icterus Mouth exam: PRESENT: neck supple Neck exam: ABSENT: lymphadenopathy, meningismus, tenderness, thyromegaly, tracheal deviation Respiratory exam: PRESENT: clear to auscultation janel, unlabored. ABSENT: chest wall tenderness, tachypnea Cardiovascular exam: PRESENT: RRR Pulses: PRESENT: normal radial pulses Vascular exam: PRESENT: normal capillary refill. ABSENT: pallor GI/Abdominal exam: PRESENT: soft, tenderness - Epigastric. ABSENT: distended, firm, guarding Rectal exam: PRESENT: deferred Extremities exam: ABSENT: clubbing Neurological exam: PRESENT: alert, awake, oriented to person, oriented to place , oriented to time, oriented to situation, CN II-XII grossly intact Psychiatric exam: ABSENT: agitated, anxious, depressed Focused psych exam: ABSENT: delusional Skin exam: ABSENT: cyanosis, erythema, jaundice Results Laboratory Results: 06/29/18 06:20 06/29/18 06:20 06/29/18 06/29/18 06:20 06:20 WBC 5.1 RBC 4.21 L Hgb 13.2 L Hct 39.5 MCV 94 MCH 31.4 MCHC 33.5 RDW 14.0 Plt Count 394 Sodium 140.1 Potassium 4.2 Chloride 108 H Carbon Dioxide 24 Anion Gap 8 BUN 11 Creatinine 0.71 Est GFR ( Amer) > 60 Est GFR (Non-Af Amer) > 60 Glucose 94 Calcium 8.6 Total Bilirubin 0.9 AST 595 H ALT 510 H Alkaline Phosphatase 146 H Total Protein 5.7 L Albumin 3.1 L Lipase 2479.2 H Impressions: Chest X-Ray 06/28/18 03:51 IMPRESSION: No acute cardiopulmonary findings. Abdomen Ultrasound 06/28/18 06:47 IMPRESSION: Fatty infiltration of the liver. Suboptimal visualization of the tail of the pancreas. Status post cholecystectomy. Common bile duct normal in transverse diameter without obstructing stone identified. Distal portion suboptimally visualized. Abdomen/Pelvis CT 06/28/18 09:22 IMPRESSION: No acute findings. Status post recent cholecystectomy. Satisfactory postoperative change. Small probably benign 1 cm low-density mass involving the body the pancreas -cyst or possibly small lipoma. Diverticulosis involving the descending colon and sigmoid CT evidence of diverticulitis. Degree of thickening of the wall of the sigmoid on the previous CT scan is less impressive on today's study. Assessment & Plan - Diagnosis (1) Gallstone pancreatitis Is this a current diagnosis for this admission?: Yes - Plan Summary Plan Summary: This is a 57-year-old male several weeks status post laparoscopic cholecystectomy. The patient represents with pancreatitis. This may be related to a retained common bile duct stone. GI has been consulted. Patient' s pain is improving. Continue with bowel rest and IV fluids. Awaiting GI input.
[2018-06-29] MEDS ORDERED: DULOXETINE HCL 30 MG CAPSULE.DR PO SCH (10:00)
[2018-06-29] MEDS ORDERED: CELECOXIB 200 MG CAPSULE PO SCH (10:00)
[2018-06-29] MEDS ORDERED: HYDROCHLOROTHIAZIDE PO SCH (11:00)
[2018-06-29] MEDS ORDERED: [UNRECOGNIZED DRUG - OTHER] PO SCH (11:00)
[2018-06-29] MEDS ORDERED: LISINOPRIL PO SCH (11:00)
[2018-06-29] MEDS ORDERED: NALOXONE HCL INJ/PF 0.4 MG/1 ML SDV ONE (17:21)
[2018-06-29] MEDS ORDERED: ONDANSETRON HCL INJ/PF 4 MG/2 ML SDV ONE (17:21)
[2018-06-29] MEDS ORDERED: DIPHENHYDRAMINE HCL 50 MG/ML VIAL ONE (17:21)
[2018-06-29] MEDS ORDERED: FENTANYL CITRATE INJ/PF 100 MCG/2 ML AMPUL ONE (17:22)
[2018-06-29] MEDS ORDERED: GLUCAGON,HUMAN RECOMB 1 MG INJ ONE (17:22)
[2018-06-29] MEDS ORDERED: FLUMAZENIL INJ 0.5 MG/5 ML VIAL ONE (17:22)
[2018-06-29] MEDS ORDERED: EPINEPHRINE INJ 1 MG/10 ML DISP.SYRIN ONE (17:22)
[2018-06-29] MEDS: MIDAZOLAM 2 MG/2 ML INJ ONE ×3 (18:48→18:54)
--- NOTE | 2018-06-29 19:25 | PDOC CONSULTATION ---
Consultation Consult Date: 06/28/18 History of Present Illness Admission Date/PCP: 06/28/18 13:02 History of Present Illness: RAUL CLAIRE is a 57 year old malePatient who was admitted on 06/28/2018 with abdominal pain and elevated liver function tests. He was just discharged on after being admitted with gallstone pancreatitis. His lipase during that admission was over 3000 with his transaminases and alkaline phosphatase increasing 2 days after his admission on 06/10/2018. The AST was 240, ALT 166 and alkaline phosphatase of 178 with a normal bilirubin. On admission this time his lipase was 359 but later went up to 2500. He is AST went up from 113 to 595, ALT from 99-510, alkaline phosphatase from 129-126. Bilirubin was normal. He has had 2 episodes of epigastric pain that lasted for a couple of hours each time. The first episode happened 2 nights ago. It was associated with nausea but no vomiting. Past Medical History Cardiac Medical History: Reports: Hyperlipidema, Hypertension Neurological Medical History: Reports: Seizures Musculoskeltal Medical History: Reports: Arthritis Psychiatric Medical History: Reports: Depression Past Surgical History Past Surgical History: Reports: Cholecystectomy, Orthopedic Surgery - neck Social History Smoking Status: Current Some Day Smoker Frequency of Alcohol Use: Occasional Hx Recreational Drug Use: No Drugs: None Hx Prescription Drug Abuse: No - Advance Directive Resuscitation Status: Full Code Family History Family History: Arthritis, Hypertension, Malignancy - Father with brain cancer. , Other - Mother with vascular disease and arthritis. Parental Family History Reviewed: No Children Family History Reviewed: NA Sibling(s) Family History Reviewed.: NA Medication/Allergy Home Medications: Atorvastatin Calcium [Lipitor 40 mg Tablet] 40 mg PO QHS 06/28/18 Duloxetine HCl [Cymbalta] 30 mg PO BID 06/28/18 Lisinopril/Hydrochlorothiazide [Zestoretic 20-25 mg Tablet] 1 tab PO DAILY 06/28 Metaxalone [Skelaxin 800 mg Tablet] 800 mg PO BIDP PRN 06/28/18 Nicotine [Nicoderm 21 mg/24 Hr Transderm Patch] 1 patch TOP DAILY 06/28/18 Tramadol HCl [Ultram 50 mg Tablet] 50 mg PO QID 06/28/18 Allergies/Adverse Reactions: No Known Allergies Allergy (Verified 10/21/16 14:16) Review of Systems All systems: reviewed and no additional remarkable complaints except as stated Physical Exam Vital Signs: Temp Pulse Resp BP Pulse Ox 98.3 F 92 18 158/91 H 98 06/29/18 15:24 06/29/18 19:00 06/29/18 19:00 06/29/18 19:00 06/29/18 19:00 Intake & Output 06/28/18 06/29/18 06/30/18 06:59 06:59 06:59 Intake Total 1539 1250 Output Total 350 Balance 1189 1250 Weight 80.2 kg Exam: General: Patient is alert and looks well. HEENT: There is no pallor or jaundice. PERRLA. Oropharynx normal Respiratory: No chest deformity. No respiratory distress. Chest wall palpitation was unremarkable. Breath sounds were normal Cardiovascular: Heart sounds 1 and 2 normal with no murmurs. Abdominal: Not distended. Soft and nontender. Liver and spleen not palpable. No ascites demonstrated. Bowel sounds active. Rectal examination was deferred. Extremities: No edema Neurological: Alert and oriented x4. Grossly nonfocal. Normal speech Skin: No significant rash Psychological: Normal affect Results Laboratory Results: 06/29/18 06:20 06/29/18 06:20 06/29/18 06/29/18 06:20 06:20 WBC 5.1 RBC 4.21 L Hgb 13.2 L Hct 39.5 MCV 94 MCH 31.4 MCHC 33.5 RDW 14.0 Plt Count 394 Sodium 140.1 Potassium 4.2 Chloride 108 H Carbon Dioxide 24 Anion Gap 8 BUN 11 Creatinine 0.71 Est GFR ( Amer) > 60 Est GFR (Non-Af Amer) > 60 Glucose 94 Calcium 8.6 Total Bilirubin 0.9 AST 595 H ALT 510 H Alkaline Phosphatase 146 H Total Protein 5.7 L Albumin 3.1 L Lipase 2479.2 H Impressions: Chest X-Ray 06/28/18 03:51 IMPRESSION: No acute cardiopulmonary findings. Abdomen Ultrasound 06/28/18 06:47 IMPRESSION: Fatty infiltration of the liver. Suboptimal visualization of the tail of the pancreas. Status post cholecystectomy. Common bile duct normal in transverse diameter without obstructing stone identified. Distal portion suboptimally visualized. Abdomen/Pelvis CT 06/28/18 09:22 IMPRESSION: No acute findings. Status post recent cholecystectomy. Satisfactory postoperative change. Small probably benign 1 cm low-density mass involving the body the pancreas -cyst or possibly small lipoma. Diverticulosis involving the descending colon and sigmoid CT evidence of diverticulitis. Degree of thickening of the wall of the sigmoid on the previous CT scan is less impressive on today's study. Assessment & Plan - Diagnosis (1) Abdominal pain Qualifiers: Abdominal location: generalized Qualified Code(s): R10.84 - Generalized abdominal pain Is this a current diagnosis for this admission?: Yes Plan: His recurrent abdominal pain with increasing liver function tests and recent episode of gallstone pancreatitis is suggestive of choledocholithiasis. The need for an ERCP including the risk and benefits were explained to the patient and he is in agreement. (2) Abnormal liver function test Is this a current diagnosis for this admission?: Yes (3) Gallstone pancreatitis Is this a current diagnosis for this admission?: Yes
--- NOTE | 2018-06-29 19:28 | Operative Report ---
Operative Report DATE OF SURGERY: 06/29/18 Operative Report: Pre-op diagnosis: Abdominal pain and elevated liver function tests Post-op diagnosis: 1. Common bile duct sludge 2. Duodenal ulcer with duodenitis Surgery: ERCP with sphincterotomy, balloon sludge extraction and biopsy Medications: Versed 5mg Fentanyl 100mcg IV push Tissue removed: Biopsy of the gastric antrum Procedure: After informed consent obtained from patient, the throat was sprayed with Hurricane and conscious sedation was achieved. The ERCP endoscope was then inserted into the esophagus blindly and advanced into the stomach. The duodenum was entered and the ampulla was identified. Using the triple-lumen sphincterotomy catheter the common bile duct was freely cannulated. A cholangiogram was obtained which showed possible filling defect in the distal common bile duct. The common bile duct and intrahepatic ducts did not appear dilated. A good sized sphincterotomy was then performed using the endocut mode. The catheter was removed over the guidewire before a 9-12 mm balloon catheter was inserted. The balloon was inflated to 12 mm in the proximal common bile duct and pulled down the duct. Some sludge was extracted. The duct was swept one more time. A balloon occlusion cholangiogram was normal. The pancreatic duct was intentionally not cannulated. Patient tolerated procedure well. Findings Duodenum: Small ulcer with surrounding erythema was noted in the duodenal bulb Common bile duct: There was some stenoses at the common bile duct opening which had to be cannulated with the guidewire. Small amount of sludge was removed with the balloon. Intrahepatic ducts: Normal Pancreatic duct: Not cannulated Plan: Follow-up liver function tests and start Prevacid OPERATION: .
[2018-06-30] MEDS: TRAMADOL HCL 50 MG TABLET PO PRN ×2 (00:11→08:18)
[2018-06-30] MEDS: MAG HYDROX/AL HYDROX/SIMETH SUSP 30 ML UDCUP PO PRN ×2 (00:13→08:18)
[2018-06-30] MEDS ORDERED: METAXALONE 800 MG TABLET PO PRN (00:56)
[2018-06-30] MEDS ORDERED: HYDROCHLOROTHIAZIDE 25 MG TABLET PO ONE (01:00)
[2018-06-30] MEDS ORDERED: LISINOPRIL 10 MG TABLET PO ONE (01:00)
[2018-06-30] MEDS: HYDROMORPHONE HCL INJ/PF 2 MG/ML AMPULE IV PRN ×4 (02:12→22:09)
[2018-06-30 07:06] LABS: ABSOLUTE BASOPHILS # (AUTO) 0.1 10^3/uL (0.0-0.2); ABSOLUTE EOSINOPHILS # (AUTO) 0.1 10^3/uL (0.0-0.6); ABSOLUTE LYMPHOCYTES (AUTO) 1.2 10^3/uL (0.5-4.7); ABSOLUTE MONOCYTES (AUTO) 0.4 10^3/uL (0.1-1.4); ABSOLUTE NEUT (AUTO) 5.2 10^3/uL (1.7-8.2); BASOPHILS % (AUTO) 1.2 % (0-2); EOSINOPHILS % (AUTO) 1.5 % (0-6); HEMATOCRIT 40.3 % (37.9-51.0); HEMOGLOBIN 13.6 g/dL (13.5-17.0); MEAN CORPUSCULAR HEMOGLOBIN 31.4 pg (27.0-33.4); MEAN CORPUSCULAR HGB CONC 33.8 g/dL (32.0-36.0); MEAN CORPUSCULAR VOLUME 93 fl (80-97); MONOCYTES % (AUTO) 6.4 % (3-13); PLATELET COUNT 415 10^3/uL (150-450); RED BLOOD COUNT 4.34 10^6/uL (4.35-5.55); RED CELL DISTRIBUTION WIDTH 14.1 % (11.5-14.0); SEGMENTED NEUTROPHILS % (AUTO) 73.9 % (42-78); TOTAL CELLS COUNTED % (AUTO) 100 %
[2018-06-30] MEDS: LANSOPRAZOLE 30 MG TAB.RAP.DR PO SCH (07:21)
[2018-06-30 07:27] LABS: ALANINE AMINOTRANSFERASE 518 U/L (21-72); ALBUMIN 3.7 g/dL (3.5-5.0); ALKALINE PHOSPHATASE 175 U/L (38-126); AMYLASE 158 U/L (30-110); ANION GAP 12 (5-19); ASPARTATE AMINO TRANSFERASE 378 U/L (17-59); BILIRUBIN,DIRECT 0.2 mg/dL (0.0-0.4); BILIRUBIN,TOTAL 0.5 mg/dL (0.2-1.3); BLOOD UREA NITROGEN 10 mg/dL (7-20); CALCIUM 9.1 mg/dL (8.4-10.2); CARBON DIOXIDE 24 mmol/L (22-30); CHLORIDE 102 mmol/L (98-107); GLUCOSE 103 mg/dL (75-110); LIPASE 452.9 U/L (23-300); POTASSIUM 4.2 mmol/L (3.6-5.0); SODIUM 138.2 mmol/L (137-145); TOTAL PROTEIN 6.3 g/dL (6.3-8.2)
--- NOTE | 2018-06-30 07:29 | RADIOLOGY REPORT (SQ) ---
EXAM DESCRIPTION: ENDO CATH/BILIARY DUCT COMPLETED DATE/TIME: 06/29/2018 8:31 pm REASON FOR STUDY: ERCP COMPARISON: CT abdomen pelvis 06/28/2018, 06/10/2018 Abdominal ultrasound 06/28/2018, 06/10/2018 FLUOROSCOPY TIME: 1 minutes 6 digital radiographic images saved to PACS. TECHNIQUE: Intra-operative images acquired during surgical procedure to evaluate progress. NUMBER OF IMAGES: 6 digital radiographic images LIMITATIONS: None. FINDINGS: Clips post cholecystectomy. Contrast was injected into the distal common bile duct. No ductal dilatation. No gross filling defe cts worrisome for retained stones. Follow-up images demonstrate that the common bile duct was sweeped with a balloon tipped catheter. Please see the operative report for further details IMPRESSION: Intra procedural imaging and fluoro COMMENT: Quality ID [id number]: Final reports for procedures using fluoroscopy that document radiation exp osure indices, or exposure time and number of fluorographic images (if radiation exposure indices are not available) Please consult full operative report of the attending physician for description of the procedure. TECHNICAL DOCUMENTATION: JOB ID: [id number] [employer]- All Rights Reserved Reading location - IP/workstation name: [email or web address]
--- NOTE | 2018-06-30 09:17 | PDOC PROGRESS REPORT ---
Subjective Progress Note for:: 06/30/18 Subjective:: Having right upper quadrant and epigastric abdominal pain. Nauseated. Reason For Visit: PANCREATITIS Physical Exam Vital Signs: Temp Pulse Resp BP Pulse Ox 97.5 F 70 20 174/95 H 100 06/30/18 08:24 06/30/18 08:24 06/30/18 08:24 06/30/18 08:24 06/30/18 08:24 Intake & Output 06/29/18 06/30/18 07/01/18 06:59 06:59 06:59 Intake Total 1539 1730 Output Total 350 Balance 1189 1730 Weight 80.2 kg 80.4 kg General appearance: PRESENT: no acute distress, cooperative Respiratory exam: PRESENT: clear to auscultation janel Cardiovascular exam: PRESENT: RRR GI/Abdominal exam: PRESENT: other - Soft, protuberant, tenderness to palpation at the epigastric and right upper quadrant without peritoneal signs. Results Laboratory Results: 06/30/18 06:37 06/30/18 06:37 06/30/18 06/30/18 06:37 06:37 WBC 7.0 RBC 4.34 L Hgb 13.6 Hct 40.3 MCV 93 MCH 31.4 MCHC 33.8 RDW 14.1 H Plt Count 415 Seg Neutrophils % 73.9 Lymphocytes % 17.0 Monocytes % 6.4 Eosinophils % 1.5 Basophils % 1.2 Absolute Neutrophils 5.2 Absolute Lymphocytes 1.2 Absolute Monocytes 0.4 Absolute Eosinophils 0.1 Absolute Basophils 0.1 Sodium 138.2 Potassium 4.2 Chloride 102 Carbon Dioxide 24 Anion Gap 12 BUN 10 Creatinine 0.61 Est GFR ( Amer) > 60 Est GFR (Non-Af Amer) > 60 Glucose 103 Calcium 9.1 Total Bilirubin 0.5 AST 378 H ALT 518 H Alkaline Phosphatase 175 H Total Protein 6.3 Albumin 3.7 Amylase 158 H Lipase 452.9 H Impressions: Chest X-Ray 06/28/18 03:51 IMPRESSION: No acute cardiopulmonary findings. Abdomen Ultrasound 06/28/18 06:47 IMPRESSION: Fatty infiltration of the liver. Suboptimal visualization of the tail of the pancreas. Status post cholecystectomy. Common bile duct normal in transverse diameter without obstructing stone identified. Distal portion suboptimally visualized. Abdomen/Pelvis CT 06/28/18 09:22 IMPRESSION: No acute findings. Status post recent cholecystectomy. Satisfactory postoperative change. Small probably benign 1 cm low-density mass involving the body the pancreas -cyst or possibly small lipoma. Diverticulosis involving the descending colon and sigmoid CT evidence of diverticulitis. Degree of thickening of the wall of the sigmoid on the previous CT scan is less impressive on today's study. Catheter Placement 06/29/18 00:00 IMPRESSION: Intra procedural imaging and fluoro Assessment & Plan - Diagnosis (1) Gallstone pancreatitis Is this a current diagnosis for this admission?: Yes Plan: Now status post ERCP. Patient has evidence of a recurrent pancreatitis. Will place him on bowel rest, IV fluids. Narcotics for pain control. (2) Diverticulitis Qualifiers: Diverticulitis site: large intestine Is this a current diagnosis for this admission?: No
[2018-06-30] MEDS ORDERED: NICOTINE 21 MG/24 HR PATCH.TD24 TOP SCH (10:00)
[2018-06-30] MEDS ORDERED: TRAMADOL HCL 50 MG TABLET PO SCH (10:00)
[2018-06-30] MEDS: DULOXETINE HCL 30 MG CAPSULE.DR PO SCH ×2 (11:23→18:14)
[2018-06-30] MEDS: HYDROCHLOROTHIAZIDE 25 MG TABLET PO SCH (12:00)
[2018-06-30] MEDS: LISINOPRIL 10 MG TABLET PO SCH (12:00)
[2018-06-30] MEDS: SUCRALFATE SUSP 1 GM/10 ML UDCUP PO SCH ×2 (15:05→18:05)
[2018-06-30] MEDS: NICOTINE 21 MG/24 HR PATCH.TD24 TD SCH ×2 (18:15→19:22)
[2018-06-30] MEDS: NORMAL SALINE 1000 ML 1,000 ML IV PRN (19:19)
[2018-06-30] MEDS: ATORVASTATIN CALCIUM 40 MG TABLET PO SCH (22:09)
[2018-07-01] MEDS: HYDROMORPHONE HCL INJ/PF 2 MG/ML AMPULE IV PRN (04:36)
[2018-07-01] MEDS: NORMAL SALINE 1000 ML 1,000 ML IV PRN (04:37)
[2018-07-01] MEDS: SUCRALFATE SUSP 1 GM/10 ML UDCUP PO SCH ×5 (04:41→23:56)
[2018-07-01] MEDS: LANSOPRAZOLE 30 MG TAB.RAP.DR PO SCH (05:30)
[2018-07-01 07:22] LABS: HEMATOCRIT 40.9 % (37.9-51.0); HEMOGLOBIN 13.9 g/dL (13.5-17.0); MEAN CORPUSCULAR HEMOGLOBIN 31.9 pg (27.0-33.4); MEAN CORPUSCULAR HGB CONC 34.1 g/dL (32.0-36.0); MEAN CORPUSCULAR VOLUME 94 fl (80-97); PLATELET COUNT 403 10^3/uL (150-450); RED BLOOD COUNT 4.37 10^6/uL (4.35-5.55); RED CELL DISTRIBUTION WIDTH 14.2 % (11.5-14.0); WHITE BLOOD COUNT 8.5 10^3/uL (4.0-10.5)
[2018-07-01 07:39] LABS: ALANINE AMINOTRANSFERASE 323 U/L (21-72); ALBUMIN 3.6 g/dL (3.5-5.0); ALKALINE PHOSPHATASE 141 U/L (38-126); ANION GAP 15 (5-19); ASPARTATE AMINO TRANSFERASE 131 U/L (17-59); BILIRUBIN,DIRECT 0.3 mg/dL (0.0-0.4); BILIRUBIN,TOTAL 0.6 mg/dL (0.2-1.3); BLOOD UREA NITROGEN 10 mg/dL (7-20); CALCIUM 9.1 mg/dL (8.4-10.2); CARBON DIOXIDE 28 mmol/L (22-30); CHLORIDE 97 mmol/L (98-107); GLUCOSE 90 mg/dL (75-110); LIPASE 172.9 U/L (23-300); POTASSIUM 3.7 mmol/L (3.6-5.0); SODIUM 139.7 mmol/L (137-145); TOTAL PROTEIN 6.1 g/dL (6.3-8.2)
[2018-07-01] MEDS: DULOXETINE HCL 30 MG CAPSULE.DR PO SCH ×2 (10:02→17:48)
[2018-07-01] MEDS: HYDROCHLOROTHIAZIDE 25 MG TABLET PO SCH (10:02)
[2018-07-01] MEDS: LISINOPRIL 10 MG TABLET PO SCH (10:03)
[2018-07-01] MEDS: NICOTINE 21 MG/24 HR PATCH.TD24 TD SCH (17:48)
[2018-07-01] MEDS: TRAMADOL HCL 50 MG TABLET PO PRN (20:15)
--- NOTE | 2018-07-01 20:58 | PDOC PROGRESS REPORT ---
Subjective Progress Note for:: 07/01/18 Subjective:: abdominal pains Reason For Visit: PANCREATITIS Physical Exam Vital Signs: Temp Pulse Resp BP Pulse Ox 97.8 F 79 16 118/71 98 07/01/18 15:47 07/01/18 15:47 07/01/18 15:47 07/01/18 15:47 07/01/18 15:47 Intake & Output 06/30/18 07/01/18 07/02/18 06:59 06:59 06:59 Intake Total 1730 3030 950 Output Total 1300 Balance 1730 1730 950 Weight 80.2 kg 77.6 kg Exam: abdomen is soft with minimal upper abdominal tenderness Results Laboratory Results: 07/01/18 06:43 07/01/18 06:43 07/01/18 07/01/18 06:43 06:43 WBC 8.5 RBC 4.37 Hgb 13.9 Hct 40.9 MCV 94 MCH 31.9 MCHC 34.1 RDW 14.2 H Plt Count 403 Sodium 139.7 Potassium 3.7 Chloride 97 L Carbon Dioxide 28 Anion Gap 15 BUN 10 Creatinine 0.64 Est GFR ( Amer) > 60 Est GFR (Non-Af Amer) > 60 Glucose 90 Calcium 9.1 Total Bilirubin 0.6 AST 131 H ALT 323 H Alkaline Phosphatase 141 H Total Protein 6.1 L Albumin 3.6 Lipase 172.9 Impressions: Chest X-Ray 06/28/18 03:51 IMPRESSION: No acute cardiopulmonary findings. Abdomen Ultrasound 06/28/18 06:47 IMPRESSION: Fatty infiltration of the liver. Suboptimal visualization of the tail of the pancreas. Status post cholecystectomy. Common bile duct normal in transverse diameter without obstructing stone identified. Distal portion suboptimally visualized. Abdomen/Pelvis CT 06/28/18 09:22 IMPRESSION: No acute findings. Status post recent cholecystectomy. Satisfactory postoperative change. Small probably benign 1 cm low-density mass involving the body the pancreas -cyst or possibly small lipoma. Diverticulosis involving the descending colon and sigmoid CT evidence of diverticulitis. Degree of thickening of the wall of the sigmoid on the previous CT scan is less impressive on today's study. Catheter Placement 06/29/18 00:00 IMPRESSION: Intra procedural imaging and fluoro Assessment & Plan - Time Time Spent with patient: 15-24 minutes - Inpatient Certification Medical Necessity: Need For IV Fluids, Need for Pain Control, Risk of Complication if Not Cared For in Hospital - Plan Summary Plan Summary: Continue monitor LFTs and Lipase which are actually trending down. Advance diet slowly Continue IVF for now
[2018-07-01] MEDS: ATORVASTATIN CALCIUM 40 MG TABLET PO SCH (23:01)
[2018-07-02] MEDS: NORMAL SALINE 1000 ML 1,000 ML IV PRN (01:48)
[2018-07-02] MEDS: LANSOPRAZOLE 30 MG TAB.RAP.DR PO SCH (06:18)
[2018-07-02] MEDS: SUCRALFATE SUSP 1 GM/10 ML UDCUP PO SCH (06:18)
[2018-07-02] MEDS: TRAMADOL HCL 50 MG TABLET PO PRN (06:18)
[2018-07-02 07:24] LABS: ALANINE AMINOTRANSFERASE 200 U/L (21-72); ALBUMIN 2.9 g/dL (3.5-5.0); ALKALINE PHOSPHATASE 103 U/L (38-126); ASPARTATE AMINO TRANSFERASE 70 U/L (17-59); BILIRUBIN,DIRECT 0.2 mg/dL (0.0-0.4); BILIRUBIN,TOTAL 0.6 mg/dL (0.2-1.3); TOTAL PROTEIN 5.1 g/dL (6.3-8.2)
[2018-07-02 10:26] VITALS: BP 103/71
[2018-07-02] MEDS: LISINOPRIL 10 MG TABLET PO SCH (10:46)
[2018-07-02] MEDS: HYDROCHLOROTHIAZIDE 25 MG TABLET PO SCH (10:46)
[2018-07-02] MEDS: DULOXETINE HCL 30 MG CAPSULE.DR PO SCH (10:46)
--- NOTE | 2018-07-03 08:35 | DISCHARGE SUMMARY E ---
Discharge Summary NAME: RAUL CLAIRE : 1960 AGE: 57Y ADMITTED: 06/28/2018 DISCHARGED: 07/02/2018 FINAL DIAGNOSES: 1. COMMON BILE DUCT SLUDGE 2. DUODENA ULCER WITH DUODENITIS. PROCEDURE DONE: 06/29/18: ERCP with sphincterotomy, balloon sludge extraction and biopsy. SURGEON: Ap Pruitt MD HOSPITAL COURSE: This is a 57-year-old male who had recent laparoscopic cholecystectomy. Postoperatively patient complained of severe abdominal pains and went to ED on 06/28/2018. He was noted to have pancreatitis. He then underwent ERCP with sphincterotomy and balloon sludge extraction and biopsy done by Dr. Pruitt on 06/29/2018. Patient's lipase went up majorly post ERCP but gradually subsided to normal on 07/01/2018. His liver enzymes gradually came down with the alkaline phosphatase normal on 07/02/2018 and the liver enzymes are almost normal. Patient able to tolerate a soft diet and the pain is more tolerable. He was then discharged improved on 07/02/2018. FINAL DIAGNOSES: 1. Gallstone PANCREATITIS. 2. DUODENAL ULCER WITH DUODENITIS. PLAN: 1. Patient was given a prescription for Prevacid 30 mg p.o. daily for at least 30 days. 2. Prescription for tramadol 50 mg p.o. q. 6 hours p.r.n. for pain. 3. Patient also to be followed up in the surgical clinic in 2 weeks and also with Dr. Pruitt. DICTATING PHYSICIAN: JUNIOR DUFFY M.D. [id number] PHY#: [id number] ID: [id number] JOB#: [id number] ACCT: [id number] cc:Brenda RUVALCABA M.D. > MTDD
== END 2018-07-02 11:05 | disposition home or self-care (01) | DRG 439 ==
LOC: ER 02:36 → EH 13:02 → 2S 16:50
PROVIDERS: ADMIT Surgery; ATTEND Surgery
PROC: 0F798ZZ Dilation of Common Bile Duct, Via Natural or Artificial Opening Endoscopic (ICD-10-PCS; principal; 2018-06-29 17:30)
DX: K85.10 Biliary acute pancreatitis without necrosis or infection (principal); K57.32 Diverticulitis of large intestine without perforation or abscess without bleeding; K26.9 Duodenal ulcer, unspecified as acute or chronic, without hemorrhage or perforation; K29.80 Duodenitis without bleeding; E78.00 Pure hypercholesterolemia, unspecified; I10 Essential (primary) hypertension; M19.90 Unspecified osteoarthritis, unspecified site; F32.9 Major depressive disorder, single episode, unspecified; F17.210 Nicotine dependence, cigarettes, uncomplicated; K76.0 Fatty (change of) liver, not elsewhere classified; R79.89 Other specified abnormal findings of blood chemistry; Z90.49 Acquired absence of other specified parts of digestive tract; Z82.61 Family history of arthritis; Z82.49 Family history of ischemic heart disease and other diseases of the circulatory system; Z80.8 Family history of malignant neoplasm of other organs or systems
CPT/HCPCS: 36415; 43262; 43264; 71045; 74177; 74328; 76705; 80053; 80076; 81001; 82150; 82550; 82553; 83605; 83690; 84484; 85025; 85027; 87040; 88305; 88342; 93005; 93010; 93976; 96365; 99285; J0171; J0692; J1170; J1200; J1610; J2250; J2310; J2405; J3010; J3490; J7030